=== PATIENT | female | born 1955 | race Caucasian/White ===

== ENCOUNTER 2021-10-18 06:47 | Inpatient (IN) ==
[2021-10-18] MEDS ORDERED: ONDANSETRON INJ 2 MG/ML 2 ML VIAL IV STA (07:25)
[2021-10-18] MEDS ORDERED: SODIUM CHLORIDE 0.9% 1000ML 1,000 ML IV SCH ×2 (07:26→10:25)
--- NOTE | 2021-10-18 07:31 | Emergency Department Note ---
History of Present Illness History of Present Illness Patient is a 66-year-old female with past medical history significant for anxiety and depression who presents emergency department accompanied by her daughter for evaluation after she suffered a syncopal episode at home while about 3 hours ago. Patient reports that she has been feeling well and was in her usual state of health yesterday. She was at a [facility] yesterday te[place], admits to drinking about 3 beers at that time. He is otherwise been eating and drinking normally. She states that her adult son woke her up around 0400 because he wanted her to check his eye for his contact lens. She got out of bed, was in the bathroom with him, used a flashlight to check his eye out, and as she turned to leave the bathroom she passed out. She does report that she felt a little bit dizzy prior to passing out. She fell into a full-length mirror in the hallway, and apparently struck her face on the ground when she fell. Son helped her up, at which point she passed out again down to the floor. He helped her up again, this time he caught her when she went down to the ground. He observed that her eyes were rolled back in her head, and she was unresponsive to him tapping her face and calling her name for several minutes. He then carried her back to bed. She remembers feeling dizzy in the bathroom, the next thing she remembers is being back in bed. She is feeling fatigued, chilled, continues to feel nauseous but has not vomited. She also has some discomfort in her nose/face where she struck it. Daughter came over about an hour later. She checked her blood pressure with a home cuff and noted to be 96/46. That is quite low for the patient. She denies any associated chest pain or palpitations. No shortness of breath. She has not been experiencing any abdominal pain, diarrhea, bloody or melanotic stools or urinary symptoms. No history of syncope or symptoms similar to this previously. Home Medications Medication Instructions Recorded Confirmed Type Estrogens, Conjugated (Premarin) 0.3 mg PO DAILY ##0 07/25/06 History Modafinil (Provigil) 200 mg PO DAILY ##0 12/25/09 History Allergies Allergy/AdvReac Type Severity Reaction Status Date / Time codeine Allergy Mild Unverified 01/13/10 16:24 Past Med/Surg History Medical History (Updated 10/18/21 @ 12:52 by OPAL Moss) Anxiety Anxiety and depression Depression Narcolepsy Osteoarthritis Surgical History History of oophorectomy Social History Smoking Status: Current every day smoker Tobacco Type: Cigarettes Hx Alcohol Use: Yes Alcohol Intake Frequency: Monthly or Less Hx Substance Use: No Preferred Language: Kyrgyz Current Living Situation: Family current occupational status: retired Feels Safe at Home: Yes Review of Systems A total of 10 systems reviewed and were otherwise negative Physical Exam Vital Signs Vital Signs - 24 hr 10/18/21 06:50 10/18/21 07:16 10/18/21 07:40 Temperature 36.5 C Temperature Source Temporal Artery Scan Pulse Rate - Lying Pulse Rate - Sitting Pulse Rate - Standing Pulse Rate 98 H Pulse Rate [Finger] 68 Respiratory Rate 18 16 Respiratory Effort / Characteristics Non-Labored Spontaneous Respiratory Depth Normal Respiratory Pattern Regular Blood Pressure - Lying Blood Pressure - Sitting Blood Pressure- Standing Blood Pressure 107/74 Blood Pressure [Right Arm] 101/70 Blood Pressure Mean 85 Blood Pressure Mean [Right Arm] 80 Blood Pressure Position Sitting Pulse Oximetry 94 96 Oxygen Delivery Method Room Air Room Air Sepsis Recent Fever Within 48 Hours No Sepsis New/Unexplained Change in Mental Status N/A Sepsis Action Taken by Nursing No Action Required 10/18/21 07:49 10/18/21 08:19 10/18/21 10:10 Temperature Temperature Source Pulse Rate - Lying 68 Pulse Rate - Sitting 74 Pulse Rate - Standing 76 Pulse Rate Pulse Rate [Finger] 74 80 Respiratory Rate 16 16 Respiratory Effort / Characteristics Respiratory Depth Respiratory Pattern Blood Pressure - Lying 103/69 Blood Pressure - Sitting 106/68 Blood Pressure- Standing 106/71 Blood Pressure Blood Pressure [Right Arm] 103/66 99/63 L Blood Pressure Mean Blood Pressure Mean [Right Arm] 78 75 Blood Pressure Position Pulse Oximetry 97 97 Oxygen Delivery Method Room Air Sepsis Recent Fever Within 48 Hours Sepsis New/Unexplained Change in Mental Status Sepsis Action Taken by Nursing 10/18/21 12:15 Temperature Temperature Source Pulse Rate - Lying Pulse Rate - Sitting Pulse Rate - Standing Pulse Rate Pulse Rate [Finger] 78 Respiratory Rate 16 Respiratory Effort / Characteristics Respiratory Depth Respiratory Pattern Blood Pressure - Lying Blood Pressure - Sitting Blood Pressure- Standing Blood Pressure Blood Pressure [Right Arm] 105/65 Blood Pressure Mean Blood Pressure Mean [Right Arm] 78 Blood Pressure Position Pulse Oximetry 89 L Oxygen Delivery Method Room Air Sepsis Recent Fever Within 48 Hours Sepsis New/Unexplained Change in Mental Status Sepsis Action Taken by Nursing CONSTITUTIONAL: [id number] HEENT: Normocephalic, atraumatic. Pupils equal, round, reactive to light and accommodation. EOMs intact without nystagmus. Sclera are anicteric. Optic discs and fundi are normal. Tympanic membranes intact, with normal landmarks. External canals are clear. No hemotympanum or Fang sign. Oral and nasopharynx are clear. No CSF rhinorrhea. Mucous membranes are moist. NECK: Supple, nontender, no lymphadenopathy. Full range of motion. HEART: Regular rate and rhythm, with normal S1 and S2, no murmur or gallop or rub is heard. LUNGS: Breath sounds equal and clear to auscultation without wheezes, rales, or rhonchi heard. SKIN: No lesions or rash, normal skin turgor. EXTREMITIES: No cyanosis, edema, joint tenderness or swelling. No deformity. NEUROLOGICAL: Alert and oriented x4. Cranial nerves 2 through 12, sensation and strength grossly intact. Gait is normal. Patient is able to toe, heel and tandem walk without difficulty. Negative Romberg, and pronator drift. Finger to nose, finger to finger and rapid alternating movements are intact. Immediate, recent and remote memories are intact. Concentration is normal. Course Course The patient was seen and assessed as above. Old records were reviewed. She presents the emergency department for evaluation after suffering a syncopal episode with injury early this morning. IV lock was initiated. Laboratory studies were collected. She was placed on the monitoring specialist and EKG was performed. She was hydrated with normal saline solution and treated with Zofran IV for nausea. Orthostatic vital signs were obtained and were normal. Laboratory studies including CBC with differential, CMP, TSH, urinalysis and 0 and 2-hour troponin were obtained. Head and maxillofacial CT scans were perfor med. Cardiac monitoring: An order was placed for continuous cardiac monitoring. The monitor shows a rate of [] with [] rhythm. Laboratory studies are reassuring. White count is normal at 10.0. H&H 13.8 and 41.2. Electrolytes and renal functions are without significant abnormality. Transaminases are normal, save for a minimally elevated alk phos at 126 of unclear significance. Initial troponin is normal. TSH is indicative of a euthyroid state. Urinalysis notes EKG note Head CT is negative for acute intracranial abnormality or fracture. Maxillofacial CT is negative for facial fractures. Administered Medications Discontinued Medications Sodium Chloride (Nss 1000ml) 1,000 mls @ 999 mls/hr IV .Q1H1M REMI Stop: 10/18/21 08:26 Last Infusion: 10/18/21 09:22 Dose: 0 mls/hr Documented By: Admin: 10/18/21 08:22 Dose: 999 mls/hr Documented By: ZULLY Sodium Chloride (Nss 1000ml) 1,000 mls @ 999 mls/hr IV .Q1H1M REMI Stop: 10/18/21 11:25 Last Infusion: 10/18/21 11:44 Dose: 0 mls/hr Documented By: Admin: 10/18/21 10:31 Dose: 999 mls/hr Documented By: ZULLY Ioversol (Optiray 300 500ml) 120 ml IV ONCE ONE Stop: 10/18/21 11:24 Last Admin: 10/18/21 11:24 Dose: 120 ml Documented By: HENRY Ondansetron HCl (Ondansetron Inj 2 Mg/Ml 2 Ml Vial) 4 mg IV NOW STA Stop: 10/18/21 07:26 Last Admin: 10/18/21 08:22 Dose: 4 mg Documented By: ZULLY Medical Decision Making Laboratory Data Result diagrams: 10/18/21 07:11 10/18/21 07:11 Lab Results 10/18/21 10/18/21 10/18/21 Range/Units 07:11 07:11 07:11 WBC 10.03 (4.8-10.8) K/ul RBC 4.54 (3.93-5.22) M/uL Hgb 13.8 (12.0-16.0) g/dl Hct 41.2 (34.1-44.9) % MCV 90.7 (80.0-100.0) fL MCH 30.4 (25.0-34.0) pg MCHC 33.5 (32.0-36.0) g/dL RDW Std Deviation 46.3 (36.4-46.3) fL RDW Coeff of Jose 13.9 (11.5-14.5) % Plt Count 301 (130-400) K/uL MPV 9.9 (9.4-12.3) fL Immature Gran % (Auto) 0.2 % Neut % (Auto) 60.1 % Lymph % (Auto) 25.2 % [place] % (Auto) 9.1 % Eos % (Auto) 4.4 % Baso % (Auto) 1.0 % Neut # (Auto) 6.03 (1.4-6.5) K/uL Lymph # (Auto) 2.53 (1.2-3.4) K/uL [place] # (Auto) 0.91 H (0.24-0.82) K/uL Eos # (Auto) 0.44 (0-0.50) K/uL Baso # (Auto) 0.10 (0-0.2) K/uL Immature Gran # (Auto) 0.02 (0.00-0.02) K/uL D-Dimer (0-500) ug/L FEU Sodium 140 (136-145) mmol/L Potassium 3.8 (3.5-5.1) mmol/L Chloride 104 (98-107) mmol/L Carbon Dioxide 31 (21-32) mmol/L Anion Gap 5 (3-11) BUN 12 (6-23) mg/dl Creatinine 0.59 L (0.6-1.2) mg/dl Est Cr Clr Drug Dosing 77.5 ml/min Est GFR ( Amer) 110.7 ml/min Est GFR (Non-Af Amer) 95.5 ml/min BUN/Creatinine Ratio 20.3 H (10-20) Glucose 92 (70-99(Fasting)) mg/dl Calcium 9.4 (8.5-10.1) mg/dl Total Bilirubin 0.4 (0.2-1.0) mg/dl AST 14 (13-39) U/L ALT 14 (7-52) U/L Alkaline Phosphatase 126 H (34-104) U/L Troponin I High Sens 3.0 (0-14) pg/ml Total Protein 6.8 (6.0-8.3) gm/dl Albumin 4.4 (3.4-5.0) gm/dl Globulin 2.4 L (2.5-4.0) gm/dl Albumin/Globulin Ratio 1.8 (0.9-2) TSH 3.326 (0.300-4.500) uIu/ml Urine Color Urine Appearance (Clear) Urine pH (4.5-7.5) Ur Specific [place] (1.000-1.030) Urine Protein (Negative) Urine Glucose (UA) (Negative) Urine Ketones (Negative) Urine Blood (Negative) Urine Nitrite (Negative) Urine Bilirubin (Negative) Urine Urobilinogen (Negative) Ur Leukocyte Esterase (Negative) 10/18/21 10/18/21 10/18/21 Range/Units 07:11 08:45 09:07 WBC (4.8-10.8) K/ul RBC (3.93-5.22) M/uL Hgb (12.0-16.0) g/dl Hct (34.1-44.9) % MCV (80.0-100.0) fL MCH (25.0-34.0) pg MCHC (32.0-36.0) g/dL RDW Std Deviation (36.4-46.3) fL RDW Coeff of Jose (11.5-14.5) % Plt Count (130-400) K/uL MPV (9.4-12.3) fL Immature Gran % (Auto) % Neut % (Auto) % Lymph % (Auto) % [place] % (Auto) % Eos % (Auto) % Baso % (Auto) % Neut # (Auto) (1.4-6.5) K/uL Lymph # (Auto) (1.2-3.4) K/uL [place] # (Auto) (0.24-0.82) K/uL Eos # (Auto) (0-0.50) K/uL Baso # (Auto) (0-0.2) K/uL Immature Gran # (Auto) (0.00-0.02) K/uL D-Dimer 2140 H* (0-500) ug/L FEU Sodium (136-145) mmol/L Potassium (3.5-5.1) mmol/L Chloride (98-107) mmol/L Carbon Dioxide (21-32) mmol/L Anion Gap (3-11) BUN (6-23) mg/dl Creatinine (0.6-1.2) mg/dl Est Cr Clr Drug Dosing ml/min Est GFR ( Amer) ml/min Est GFR (Non-Af Amer) ml/min BUN/Creatinine Ratio (10-20) Glucose (70-99(Fasting)) mg/dl Calcium (8.5-10.1) mg/dl Total Bilirubin (0.2-1.0) mg/dl AST (13-39) U/L ALT (7-52) U/L Alkaline Phosphatase (34-104) U/L Troponin I High Sens 2.9 (0-14) pg/ml Total Protein (6.0-8.3) gm/dl Albumin (3.4-5.0) gm/dl Globulin (2.5-4.0) gm/dl Albumin/Globulin Ratio (0.9-2) TSH (0.300-4.500) uIu/ml Urine Color Yellow Urine Appearance Clear (Clear) Urine pH 6.0 (4.5-7.5) Ur Specific [place] 1.009 (1.000-1.030) Urine Protein Negative (Negative) Urine Glucose (UA) Negative (Negative) Urine Ketones Negative (Negative) Urine Blood Negative (Negative) Urine Nitrite Negative (Negative) Urine Bilirubin Negative (Negative) Urine Urobilinogen Negative (Negative) Ur Leukocyte Esterase Negative (Negative) Imaging Data Radiologist's Impression: Face CT 10/18/21 07:[address] WITHOUT CONTRAST CLINICAL HISTORY: syncopal episode, fell and hit face COMPARISON STUDY: None. TECHNIQUE: A maxillofacial CT was performed without IV contrast. Coronal and sagittal reformats were viewed. Automated exposure control was utilized for the study. A dose lowering technique was utilized adhering to the principles of ALARA. FINDINGS: No acute facial fracture is identified. Globes are intact. There is no retrobulbar hematoma. Orbital floors are intact. Small mucous retention cyst within the right maxillary sinus is noted. There is mild ethmoid sinus mucosal thickening. Alignment of the temporomandibular joints is anatomic. No acute skull base fracture. No acute fracture within the visualized upper cervical spine. IMPRESSION: No acute facial fracture. ACT 112: Negative or not required by law. Electronically signed by: Quinton Avalos M.D. 10/18/2021 7:[address] 10/18/21 07:25 CT head/brain wo con CLINICAL HISTORY: 66 years-old Female with syncope. Acute head trauma status post syncope TECHNIQUE: Multiple axial CT images of the head were obtained without contrast. A dose lowering technique was utilized adhering to the principles of ALARA. COMPARISON: CT maxillofacial same day. FINDINGS: No acute intracranial hemorrhage, midline shift, intracranial mass, hydrocephalus, territorial ischemia or abnormal extra-axial collection. Mild involutional changes. Low-lying cerebellar tonsils. The calvarium is intact. The paranasal sinuses, mastoid air cells, and middle ear cavities are clear. IMPRESSION: No acute intracranial abnormality or calvarial fracture. ACT 112: Negative or not required by law. The above report was generated using voice recognition software. It may contain grammatical, syntax or spelling errors. Electronically signed by: Boone Esparza M.D. 10/18/2021 7:50 AM Chest CTA 10/18/21 11:05 CT angio chest PE protocol CT DOSE: 275.10 mGy.cm HISTORY: 66 years-old Female with HYPOTENSION, SYNCOPAL EPISODE, ELEVATED DDIMER. Acute syncope with hypotension. Elevated d-dimer. TECHNIQUE: Multiple CTA images of the chest were obtained after the intravenous administration of 120 ml Optiray. Coronal and sagittal MIPS were obtained from the axial data set and were submitted for review. All measurements were obtained according to NASCET criteria. A dose lowering technique was utilized adhering to the principles of ALARA. COMPARISON: Chest CT 01/14/2010 FINDINGS: CTA: The heart is normal in size. There is no pericardial effusion. No thoracic aortic aneurysm or dissection. Unremarkable pulmonary artery. No filling defects are identified to suggest thromboembolic disease. CT CHEST: Heterogeneous thyroid with subcentimeter left-sided nodule. No pathologically enlarged lymph nodes of the chest identified. Trace left pleural effusion. No pneumothorax or overt pulmonary edema. Bronchial wall thickening with bibasilar mucous plugging. Minimal dependent subsegmental bibasilar atelectasis. Reticular nodular opacities of the upper lobes with solid pulmonary nodules measuring up to 3 mm. No acute process of the imaged upper abdomen. Mild nonspecific bilateral perinephric stranding. There is suggestion of mild wall thickening of the stomach with trace area gastric inflammation. Unremarkable soft tissues. No acute fracture. IMPRESSION: 1. No pulmonary emboli. 2. Mild reticular nodular opacities of the upper lobes with solid pulmonary nodules measuring up to 3 mm, likely infectious or inflammatory. 3. There is suggestion of mild nonspecific wall thickening involving the gastric body. Findings should be correlated clinically to exclude a nonspecific gastritis. ACT 112: Negative or not required by law. The above report was generated using voice recognition software. It may contain grammatical, syntax or spelling errors. Electronically signed by: Boone Esparza M.D. 10/18/2021 12:06 PM Discharge Plan Visit Data Patient Disposition: Being Evaluated by Hospitalist Forms Stand Alone Forms: [facility] Prescriptions Prescriptions: No Action Estrogens, Conjugated (Premarin) 0.3 MG tablet 0.3 mg PO DAILY Qty: 0 Modafinil (Provigil) 200 MG tablet 200 mg PO DAILY Qty: 0 Referrals Referrals: PCP,NO [Physician] -
[2021-10-18 07:35] LABS: Eosinophils # (auto) 0.44 K/uL (0-0.50); Eosinophils % (auto) 4.4 %; Hematocrit (blood only) 41.2 % (34.1-44.9); Hemoglobin 13.8 g/dl (12.0-16.0); Immature Granulocytes # (auto) 0.02 K/uL (0.00-0.02); Immature Granulocytes % (auto) 0.2 %; Lymphocytes # (auto) 2.53 K/uL (1.2-3.4); Lymphocytes % (auto) 25.2 %; Mean Corpuscular Hemoglobin 30.4 pg (25.0-34.0); Mean Corpuscular Hgb Conc 33.5 g/dL (32.0-36.0); Mean Corpuscular Volume 90.7 fL (80.0-100.0); Mean Platelet Volume 9.9 fL (9.4-12.3); Monocytes # (auto) 0.91 K/uL (0.24-0.82); Monocytes % (auto) 9.1 %; Neutrophils # (auto) 6.03 K/uL (1.4-6.5); Neutrophils % (auto) 60.1 %; Platelet Count 301 K/uL (130-400); RDW Coefficient of Variation 13.9 % (11.5-14.5); RDW Standard Deviation 46.3 fL (36.4-46.3); Red Blood Count 4.54 M/uL (3.93-5.22); White Blood Count 10.03 K/ul (4.8-10.8)
--- NOTE | 2021-10-18 07:51 | CT Scan Report ---
CT head/brain wo con CLINICAL HISTORY: 66 years-old Female with syncope. Acute head trauma status post syncope TECHNIQUE: Multiple axial CT images of the head were obtained without contrast. A dose lowering tech nique was utilized adhering to the principles of ALARA. COMPARISON: CT maxillofacial same day. FINDINGS: No acute intracranial hemorrhage, midline shift, intracranial mass, hydrocephalus, territorial ischem ia or abnormal extra-axial collection. Mild involutional changes. Low-lying cerebellar tonsils. The calvarium is intact. The paranasal sinuses, mastoid air cells, and middle ear cavities are clear . IMPRESSION: No acute intracranial abnormality or calvarial fracture. ACT 112: Negative or not required by law. The above report was generated using voice recognition software. It may contain grammatical, syntax o r spelling errors. Electronically signed by: Boone Esparza M.D. 10/18/2021 7:50 AM
--- NOTE | 2021-10-18 07:55 | CT Scan Report ---
MAXILLOFACIAL CT WITHOUT CONTRAST CLINICAL HISTORY: syncopal episode, fell and hit face COMPARISON STUDY: None. TECHNIQUE: A maxillofacial CT was performed without IV contrast. Coronal and sagittal reformats were viewed. Automated exposure control was utilized for the study. A dose lowering technique was utiliz ed adhering to the principles of ALARA. FINDINGS: No acute facial fracture is identified. Globes are intact. There is no retrobulbar hematoma . Orbital floors are intact. Small mucous retention cyst within the right maxillary sinus is noted. T here is mild ethmoid sinus mucosal thickening. Alignment of the temporomandibular joints is anatomic. No acute skull base fracture. No acute fracture within the visualized upper cervical spine. IMPRESSION: No acute facial fracture. ACT 112: Negative or not required by law. Electronically signed by: Quinton Avalos M.D. 10/18/2021 7:54 AM
[2021-10-18 08:03] LABS: Albumin Globulin Ratio 1.8 (0.9-2); Albumin Level 4.4 gm/dl (3.4-5.0); BUN Creatinine Ratio 20.3 (10-20); Bilirubin,Total 0.4 mg/dl (0.2-1.0); Calcium 9.4 mg/dl (8.5-10.1); Creatinine Clr Calc Pharmacy 77.5 ml/min; Est GFR (African American) 110.7 ml/min; Est GFR (Non-African American) 95.5 ml/min; Globulin 2.4 gm/dl (2.5-4.0); Potassium 3.8 mmol/L (3.5-5.1); Total Protein 6.8 gm/dl (6.0-8.3)
[2021-10-18 09:01] LABS: Appearance Urine Clear (Clear); Bilirubin Urine Negative (Negative); Blood Urine Negative (Negative); Color Urine Yellow; Glucose Urine UA Negative (Negative); Ketones Urine Negative (Negative); Leukocyte Esterase Urine Negative (Negative); Nitrite Urine Negative (Negative); Protein Urine Negative (Negative); Specific Gravity Urine 1.009 (1.000-1.030); Urobilinogen Urine Negative (Negative)
[2021-10-18 10:50] LABS: D Dimer 2140 ug/L FEU (0-500)
[2021-10-18] MEDS ORDERED: OPTIRAY 300 500mL IV ONE (11:23)
--- NOTE | 2021-10-18 12:08 | CT Scan Report ---
CT angio chest PE protocol CT DOSE: 275.10 mGy.cm HISTORY: 66 years-old Female with HYPOTENSION, SYNCOPAL EPISODE, ELEVATED DDIMER. Acute syncope wit h hypotension. Elevated d-dimer. TECHNIQUE: Multiple CTA images of the chest were obtained after the intravenous administration of 120 ml Optiray. Coronal and sagittal MIPS were obtained from the axial data set and were submitted for review. All measurements were obtained according to NASCET criteria. A dose lowering technique was u tilized adhering to the principles of ALARA. COMPARISON: Chest CT 01/14/2010 FINDINGS: CTA: The heart is normal in size. There is no pericardial effusion. No thoracic aortic aneurysm or dissect ion. Unremarkable pulmonary artery. No filling defects are identified to suggest thromboembolic disea se. CT CHEST: Heterogeneous thyroid with subcentimeter left-sided nodule. No pathologically enlarged lymph nodes of the chest identified. Trace left pleural effusion. No pneumothorax or overt pulmonary edema. Bronchi al wall thickening with bibasilar mucous plugging. Minimal dependent subsegmental bibasilar atelectas is. Reticular nodular opacities of the upper lobes with solid pulmonary nodules measuring up to 3 mm. No acute process of the imaged upper abdomen. Mild nonspecific bilateral perinephric stranding. There is suggestion of mild wall thickening of the stomach with trace area gastric inflammation. Unremarka ble soft tissues. No acute fracture. IMPRESSION: 1. No pulmonary emboli. 2. Mild reticular nodular opacities of the upper lobes with solid pulmonary nodules measuring up to 3 mm, likely infectious or inflammatory. 3. There is suggestion of mild nonspecific wall thickening involving the gastric body. Findings shoul d be correlated clinically to exclude a nonspecific gastritis. ACT 112: Negative or not required by law. The above report was generated using voice recognition software. It may contain grammatical, syntax o r spelling errors. Electronically signed by: Boone Esparza M.D. 10/18/2021 12:06 PM
--- NOTE | 2021-10-18 12:46 | History & Physical Report ---
Date of Service October 18, 2021 Assessment & Plan (1) Syncope: (2) Hypotension: (3) Narcolepsy: (4) Anxiety and depression: Plan This is a 66 year old female who presented to the ED s/p two witnessed syncopal events and hypotension. PMH Narcolepsy, anxiety and depression. D-Dimer elevated; CTA negative. Head CT negative. Troponin negative; will trend. Likely vasovagal in nature. [facility] OPT cardiology appointment for zio patch/loop monitor. Syncope: Suspect vasovagal in nature Head CT negative D-Dimer 2140; CTA negative for PE Some nodules in the lungs 3mm possibly infectious in nature. Procal ordered; add on Mg+ Troponin negative x2; will trend Last A1C: 6.0 07/2021 Orthostatic BP's ordered ECHO ordered; no previous ECHO Rec [facility] Cardiology/ZIO patch. Zofran PRN for nausea Hypotension: SBP ranging 90-100; has received 2L IVF Maintenance fluids ordered Orthostatic BP's ordered Narcolepsy: Was taking Modafinil; stopped taking it one year ago Anxiety and Depression: Takes Sertraline; continue Osteoarthritis: Stable; takes Celebrex; continue. Disposition: PCP: Dr. Bismark Rosado Code Status: Full Code VTE Prophylaxis: Heparin SQ Goal to [place] home at [place] History of Present Illness Chief Complaint: syncope Primary Care Provider: Bismark Rosado DO This patient presented to the [facility] with her daughter after experiencing an episode of syncope, hitting her face on a standing wall mirror, and a period of one minute where her son reports that she was not responding to him. The patient does not recall the events. When her son tried to tap her on her face, her eyes rolled back into her head, was not responding for one minute. There was no vomiting, loss of bowel or bladder function, but she reports feeling dizzy and having diaphoresis. For a few seconds after her consciousness returned, she was confused. A head CT was negative, no acute facial fractures. D-dimer was elevated 2140; chest CTA negative for PE. Some nodules in the lungs 3mm possibly infectious in nature. No leukocytosis. Patient reports 1/2-3/4 ppd of cigarettes for 40+ years. Pt reports that she typically does not drink alcohol, but yesterday had 3 social drinks, no recreational drug use. Pt currently denies AMBRIZ, dizziness, CP, SOB, N/V/D, skin changes. Patient has an additional PMH that includes: narcolepsy, depression, anxiety, and OA. Patient has been off of Modafinil for almost one year. Patient is now retired and reports having a lot less stress now which has improved her anxiety, depression and narcolepsy. Patient will be admitted to the [facility] service for further evaluation and management. Allergies Allergy/AdvReac Type Severity Reaction Status Date / Time codeine Allergy Mild Unverified 01/13/10 16:24 Past Med/Surg History Medical History Anxiety Anxiety and depression Depression Narcolepsy Osteoarthritis Surgical History History of oophorectomy Social History Smoking Status: Current every day smoker Tobacco Type: Cigarettes Hx Alcohol Use: Yes Alcohol Intake Frequency: Monthly or Less Hx Substance Use: No Preferred Language: Luxembourgish Current Living Situation: Family current occupational status: retired Feels Safe at Home: Yes Review of Systems Review of Systems: Neuro: (-) Falls, trauma, slurred speech HEENT: (-) AMBRIZ, dizziness, dysphagia, visual or auditory changes CV: (-) CP, palpitations, swelling Resp: (-) SOB GI: (-) appetite changes, N/V/D, bowel changes : (-) urinary changes Skin: (-) rashes Psych: (+) anxiety, depression Physical Exam Physical Exam: Please refer to Dr. Freeman's addendum for physical examination documentation Results & Data Results & Data ([facility]) Vital Signs (Past 12 Hours) Vital Signs Temp Pulse Pulse Resp BP BP Pulse Ox 10/18/21 12:15 78 16 105/65 89 L 10/18/21 10:10 80 16 99/63 L 97 10/18/21 08:19 74 16 103/66 97 10/18/21 07:40 10/18/21 07:16 68 16 101/70 96 10/18/21 06:50 36.5 C 98 H 18 107/74 94 O2 Del Method 10/18/21 12:15 Room Air 10/18/21 10:10 Room Air 10/18/21 08:19 10/18/21 07:40 Room Air 10/18/21 07:16 10/18/21 06:50 Room Air Laboratory Results Short CBC 10/18/21 Range/Units 07:11 WBC 10.03 (4.8-10.8) K/ul Hgb 13.8 (12.0-16.0) g/dl Hct 41.2 (34.1-44.9) % Plt Count 301 (130-400) K/uL BMP 10/18/21 07:11 Sodium 140 Potassium 3.8 Chloride 104 Carbon Dioxide 31 BUN 12 Creatinine 0.59 L Glucose 92 Calcium 9.4 Liver Function 10/18/21 Range/Units 07:11 Total Bilirubin 0.4 (0.2-1.0) mg/dl AST 14 (13-39) U/L ALT 14 (7-52) U/L Alkaline Phosphatase 126 H (34-104) U/L Albumin 4.4 (3.4-5.0) gm/dl Urine 10/18/21 Range/Units 08:45 Urine Color Yellow Urine Appearance Clear (Clear) Urine pH 6.0 (4.5-7.5) Ur Specific [place] 1.009 (1.000-1.030) Urine Protein Negative (Negative) Urine Glucose (UA) Negative (Negative) Diagnostic Findings Face CT 10/18/21 07:[address] WITHOUT CONTRAST CLINICAL HISTORY: syncopal episode, fell and hit face COMPARISON STUDY: None. TECHNIQUE: A maxillofacial CT was performed without IV contrast. Coronal and sagittal reformats were viewed. Automated exposure control was utilized for the study. A dose lowering technique was utilized adhering to the principles of ALA RA. FINDINGS: No acute facial fracture is identified. Globes are intact. There is no retrobulbar hematoma. Orbital floors are intact. Small mucous retention cyst within the right maxillary sinus is noted. There is mild ethmoid sinus mucosal thickening. Alignment of the temporomandibular joints is anatomic. No acute skull base fracture. No acute fracture within the visualized upper cervical spi ne. IMPRESSION: No acute facial fracture. ACT 112: Negative or not required by law. Electronically signed by: Quinton Avalos M.D. 10/18/2021 7:[address] 10/18/21 07:25 CT head/brain wo con CLINICAL HISTORY: 66 years-old Female with syncope. Acute head trauma status post syncope TECHNIQUE: Multiple axial CT images of the head were obtained without contrast. A dose lowering technique was utilized adhering to the principles of ALARA. COMPARISON: CT maxillofacial same day. FINDINGS: No acute intracranial hemorrhage, midline shift, intracranial mass, hydrocephalus, territorial ischemia or abnormal extra-axial collection. Mild involutional changes. Low-lying cerebellar tonsils. The calvarium is intact. The paranasal sinuses, mastoid air cells, and middle ear cavities are clear. IMPRESSION: No acute intracranial abnormality or calvarial fracture. ACT 112: Negative or not required by law. The above report was generated using voice recognition software. It may contain grammatical, syntax or spelling errors. Electronically signed by: Boone Esparza M.D. 10/18/2021 7:50 AM Chest CTA 10/18/21 11:05 CT angio chest PE protocol CT DOSE: 275.10 mGy.cm HISTORY: 66 years-old Female with HYPOTENSION, SYNCOPAL EPISODE, ELEVATED DDIMER. Acute syncope with hypotension. Elevated d-dimer. TECHNIQUE: Multiple CTA images of the chest were obtained after the intravenous administration of 120 ml Optiray. Coronal and sagittal MIPS were obtained from the axial data set and were submitted for review. All measurements were obtained according to NASCET criteria. A dose lowering technique was utilized adhering to the principles of ALARA. COMPARISON: Chest CT 01/14/2010 FINDINGS: CTA: The heart is normal in size. There is no pericardial effusion. No thoracic aortic aneurysm or dissection. Unremarkable pulmonary artery. No filling defects are identified to suggest thromboembolic disease. CT CHEST: Heterogeneous thyroid with subcentimeter left-sided nodule. No pathologically enlarged lymph nodes of the chest identified. Trace left pleural effusion. No pneumothorax or overt pulmonary edema. Bronchial wall thickening with bibasilar mucous plugging. Minimal dependent subsegmental bibasilar atelectasis. Reticular nodular opacities of the upper lobes with solid pulmonary nodules measuring up to 3 mm. No acute process of the imaged upper abdomen. Mild nonspecific bilateral perinephric stranding. There is suggestion of mild wall thickening of the stomach with trace area gastric inflammation. Unremarkable soft tissues. No acute fracture. IMPRESSION: 1. No pulmonary emboli. 2. Mild reticular nodular opacities of the upper lobes with solid pulmonary nodules measuring up to 3 mm, likely infectious or inflammatory. 3. There is suggestion of mild nonspecific wall thickening involving the gastric body. Findings should be correlated clinically to exclude a nonspecific gastritis. ACT 112: Negative or not required by law. The above report was generated using voice recognition software. It may contain grammatical, syntax or spelling errors. Electronically signed by: Boone Esparza M.D. 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 Per patient, she went to picnic yesterday and had some extra level of exertion yesterday, also drank couple of beers (generally pt drinks very rarel y). She was woke up by her son today around 4 am to check on his eyes, which she did and then while turning around to return to her bed, she felt dizzy/sweaty and nauseous and fell on full length standing wall mirror hitting on her face. she was picked up by her son and immediately she had another syncopal events when her son prevented her from falling. She went to bed and again within an hour, when she got up to go to bathroom, she had another event of syncope when she was noted to have rolled eyes, was "out" for a minute "may be" and was confused for few seconds after she gained consciousness. No involuntary movements/loss of BnB control/tongue biting/prolong confusion/ictal phase noted. labs wnl, BP soft, CT H and Face wnl, d-dimer elevated --> CTA Chest w/ no PE. Trops x 2 negative. Pt w/ no chest pain or palpitations. IVF, trend trop, ECHO, ??? zio patch on DC, telemetry monitoring, IVF, ortho vitals (but patient received already 2L of IVF in the ED, ??reliability of test]. Upon Exam: GENERAL: Alert and oriented x3. NAD, on RA. HEENT: No pallor, no icterus. Pupils equal, round and reactive to light. Oral mucosa moist. NECK: No JVD, no neck masses. Superficial laceration of left nasal bridge/left supraorbital ridge noted, both small. HEART: S1 and S2 heard. Regular rate and rhythm. systolic murmur aortic area, no gallop. RESPIRATORY SYSTEM: Normal AP diameter. No accessory muscle use. No wheezing, no crackles. ABDOMEN: Soft, bowel sounds present, nontender, no distention. CENTRAL NERVOUS SYSTEM: No facial droop. Speech is clear. Obeys simple commands. Moves extremities. EXTREMITIES: No edema, no erythema seen. I have seen and examined the patient and have discussed the case with the provider above. I agree with the assessment and plan as stated.
--- NOTE | 2021-10-18 13:18 | Emergency Department Note ---
History of Present Illness General Chief complaint: Syncope Stated complaint: FAINTING, FALL TO THE FACE, NAUSEA Time Seen by Provider: 10/18/21 07:03 History of Present Illness Patient is a 66-year-old female with past medical history significant for narcolepsy, anxiety, depression and osteoarthritis who presents the emergency department accompanied by her daughter for evaluation after she suffered a syncopal episode at this morning. Incident happened around 3 hours prior to arrival, at 0400 this morning. Her adult son woke her from sleep to ask if she could look at his eye to see if he still had a contact lens in. They were in the bathroom for several minutes, looking at the eye. They had finished, and she was backing out of the bathroom to leave, when she passed out. She fell from a standing position, hit a floor length mirror in the hallway which broke, and went down to the ground. Her son witnessed the incident. He attended to her immediately. She was mumbling on the ground that she was fine, he helped stand her up at which point she immediately went back down to the ground. He helped her up a third time, this time when she started to go down, he caught her and lowered her to the ground. There was a period of a few minutes when she had her eyes rolled back in her head and would not respond to him calling her name or touching her face. He carried her back to bed. The patient states that she remembers being in the bathroom and feeling dizzy, then the next thing she remembers is being back in bed. She reports feeling dizzy, fatigued, nauseous and having chills. She has some soreness in her nose where she struck it, she does have an abrasion there. She denies any associated chest pain, palpitations or shortness of breath. She has been feeling well and was in her usual state of health prior to the incident this morning. She had a few beers at a family picnic earlier in the evening. Daughter came over about an hour after the incident and checked her blood pressure it was 96/46 with a home cuff. No vomiting. Normal bowel movements, and without melena or bright red blood per rectum. No urinary symptoms. She denies any headache. No neck pain. No other injuries related to the fall. Home Medications Medication Instructions Recorded Confirmed Type celecoxib 200 mg capsule 200 mg PO QAM 10/18/21 10/18/21 History cholecalciferol (vitamin D3) 25 0 mcg PO DAILY 10/18/21 10/18/21 History mcg (1,000 unit) capsule sertraline 100 mg tablet 100 mg PO QAM 10/18/21 10/18/21 History Allergies Allergy/AdvReac Type Severity Reaction Status Date / Time morphine AdvReac Nausea Unverified 10/18/21 14:26 Past Med/Surg History Medical History Anxiety Anxiety and depression Depression Narcolepsy Osteoarthritis Surgical History History of oophorectomy Social History Smoking Status: Current every day smoker Tobacco Type: Cigarettes Hx Alcohol Use: Yes Alcohol Intake Frequency: Monthly or Less Hx Substance Use: No Preferred Language: German Current Living Situation: Family current occupational status: retired Feels Safe at Home: Yes Review of Systems A total of 10 systems reviewed and were otherwise negative Physical Exam Vital Signs Vital Signs - 24 hr 10/18/21 06:50 10/18/21 07:16 10/18/21 07:40 Temperature 36.5 C Temperature Source Temporal Artery Scan Pulse Rate - Lying Pulse Rate - Sitting Pulse Rate - Standing Pulse Rate 98 H Pulse Rate [Finger] 68 Pulse Rate from SpO2 Sensor Respiratory Rate 18 16 Respiratory Effort / Characteristics Non-Labored Spontaneous Respiratory Depth Normal Respiratory Pattern Regular Blood Pressure - Lying Blood Pressure - Sitting Blood Pressure- Standing Blood Pressure 107/74 Blood Pressure [Right Arm] 101/70 Blood Pressure Mean 85 Blood Pressure Mean [Right Arm] 80 Blood Pressure Position Sitting Pulse Oximetry 94 96 Oxygen Delivery Method Room Air Room Air Sepsis Recent Fever Within 48 Hours No Sepsis New/Unexplained Change in Mental Status N/A Sepsis Action Taken by Nursing No Action Required 10/18/21 07:49 10/18/21 08:19 10/18/21 10:10 Temperature Temperature Source Pulse Rate - Lying 68 Pulse Rate - Sitting 74 Pulse Rate - Standing 76 Pulse Rate Pulse Rate [Finger] 74 80 Pulse Rate from SpO2 Sensor Respiratory Rate 16 16 Respiratory Effort / Characteristics Respiratory Depth Respiratory Pattern Blood Pressure - Lying 103/69 Blood Pressure - Sitting 106/68 Blood Pressure- Standing 106/71 Blood Pressure Blood Pressure [Right Arm] 103/66 99/63 L Blood Pressure Mean Blood Pressure Mean [Right Arm] 78 75 Blood Pressure Position Pulse Oximetry 97 97 Oxygen Delivery Method Room Air Sepsis Recent Fever Within 48 Hours Sepsis New/Unexplained Change in Mental Status Sepsis Action Taken by Nursing 10/18/21 12:15 10/18/21 09:00 10/18/21 09:00 Temperature Temperature Source Pulse Rate - Lying Pulse Rate - Sitting Pulse Rate - Standing Pulse Rate 81 Pulse Rate [Finger] 78 Pulse Rate from SpO2 Sensor 79 Respiratory Rate 16 19 Respiratory Effort / Characteristics Respiratory Depth Respiratory Pattern Blood Pressure - Lying Blood Pressure - Sitting Blood Pressure- Standing Blood Pressure 107/64 Blood Pressure [Right Arm] 105/65 Blood Pressure Mean 78 Blood Pressure Mean [Right Arm] 78 Blood Pressure Position Pulse Oximetry 89 L 91 Oxygen Delivery Method Room Air Sepsis Recent Fever Within 48 Hours Sepsis New/Unexplained Change in Mental Status Sepsis Action Taken by Nursing 10/18/21 09:10 10/18/21 09:20 10/18/21 09:30 Temperature Temperature Source Pulse Rate - Lying Pulse Rate - Sitting Pulse Rate - Standing Pulse Rate 80 78 Pulse Rate [Finger] Pulse Rate from SpO2 Sensor 79 78 Respiratory Rate 23 20 Respiratory Effort / Characteristics Respiratory Depth Respiratory Pattern Blood Pressure - Lying Blood Pressure - Sitting Blood Pressure- Standing Blood Pressure 99/64 L Blood Pressure [Right Arm] Blood Pressure Mean 75 Blood Pressure Mean [Right Arm] Blood Pressure Position Pulse Oximetry 93 92 Oxygen Delivery Method Sepsis Recent Fever Within 48 Hours Sepsis New/Unexplained Change in Mental Status Sepsis Action Taken by Nursing 10/18/21 09:30 10/18/21 09:40 10/18/21 09:50 Temperature Temperature Source Pulse Rate - Lying Pulse Rate - Sitting Pulse Rate - Standing Pulse Rate 76 78 76 Pulse Rate [Finger] Pulse Rate from SpO2 Sensor 77 78 76 Respiratory Rate 14 15 14 Respiratory Effort / Characteristics Respiratory Depth Respiratory Pattern Blood Pressure - Lying Blood Pressure - Sitting Blood Pressure- Standing Blood Pressure Blood Pressure [Right Arm] Blood Pressure Mean Blood Pressure Mean [Right Arm] Blood Pressure Position Pulse Oximetry 92 92 90 Oxygen Delivery Method Sepsis Recent Fever Within 48 Hours Sepsis New/Unexplained Change in Mental Status Sepsis Action Taken by Nursing 10/18/21 10:00 10/18/21 10:00 10/18/21 10:10 Temperature Temperature Source Pulse Rate - Lying Pulse Rate - Sitting Pulse Rate - Standing Pulse Rate 77 81 Pulse Rate [Finger] Pulse Rate from SpO2 Sensor 77 80 Respiratory Rate 13 12 Respiratory Effort / Characteristics Respiratory Depth Respiratory Pattern Blood Pressure - Lying Blood Pressure - Sitting Blood Pressure- Standing Blood Pressure 93/63 L Blood Pressure [Right Arm] Blood Pressure Mean 73 Blood Pressure Mean [Right Arm] Blood Pressure Position Pulse Oximetry 90 91 Oxygen Delivery Method Sepsis Recent Fever Within 48 Hours Sepsis New/Unexplained Change in Mental Status Sepsis Action Taken by Nursing 10/18/21 10:20 10/18/21 10:30 10/18/21 10:30 Temperature Temperature Source Pulse Rate - Lying Pulse Rate - Sitting Pulse Rate - Standing Pulse Rate 77 73 Pulse Rate [Finger] Pulse Rate from SpO2 Sensor 76 75 Respiratory Rate 16 21 Respiratory Effort / Characteristics Respiratory Depth Respiratory Pattern Blood Pressure - Lying Blood Pressure - Sitting Blood Pressure- Standing Blood Pressure 99/65 L Blood Pressure [Right Arm] Blood Pressure Mean 76 Blood Pressure Mean [Right Arm] Blood Pressure Position Pulse Oximetry 92 92 Oxygen Delivery Method Sepsis Recent Fever Within 48 Hours Sepsis New/Unexplained Change in Mental Status Sepsis Action Taken by Nursing 10/18/21 10:40 10/18/21 10:50 10/18/21 11:00 Temperature Temperature Source Pulse Rate - Lying Pulse Rate - Sitting Pulse Rate - Standing Pulse Rate 75 75 Pulse Rate [Finger] Pulse Rate from SpO2 Sensor 75 74 Respiratory Rate 19 21 Respiratory Effort / Characteristics Respiratory Depth Respiratory Pattern Blood Pressure - Lying Blood Pressure - Sitting Blood Pressure- Standing Blood Pressure 100/68 Blood Pressure [Right Arm] Blood Pressure Mean 78 Blood Pressure Mean [Right Arm] Blood Pressure Position Pulse Oximetry 92 93 Oxygen Delivery Method Sepsis Recent Fever Within 48 Hours Sepsis New/Unexplained Change in Mental Status Sepsis Action Taken by Nursing 10/18/21 11:00 10/18/21 11:10 10/18/21 11:31 Temperature Temperature Source Pulse Rate - Lying Pulse Rate - Sitting Pulse Rate - Standing Pulse Rate 72 74 74 Pulse Rate [Finger] Pulse Rate from SpO2 Sensor 72 74 73 Respiratory Rate 18 13 14 Respiratory Effort / Characteristics Respiratory Depth Respiratory Pattern Blood Pressure - Lying Blood Pressure - Sitting Blood Pressure- Standing Blood Pressure Blood Pressure [Right Arm] Blood Pressure Mean Blood Pressure Mean [Right Arm] Blood Pressure Position Pulse Oximetry 94 95 93 Oxygen Delivery Method Sepsis Recent Fever Within 48 Hours Sepsis New/Unexplained Change in Mental Status Sepsis Action Taken by Nursing 10/18/21 11:40 10/18/21 11:50 10/18/21 12:00 Temperature Temperature Source Pulse Rate - Lying Pulse Rate - Sitting Pulse Rate - Standing Pulse Rate 75 75 Pulse Rate [Finger] Pulse Rate from SpO2 Sensor 75 75 Respiratory Rate 16 18 Respiratory Effort / Characteristics Respiratory Depth Respiratory Pattern Blood Pressure - Lying Blood Pressure - Sitting Blood Pressure- Standing Blood Pressure 105/65 Blood Pressure [Right Arm] Blood Pressure Mean 78 Blood Pressure Mean [Right Arm] Blood Pressure Position Pulse Oximetry 92 92 Oxygen Delivery Method Sepsis Recent Fever Within 48 Hours Sepsis New/Unexplained Change in Mental Status Sepsis Action Taken by Nursing 10/18/21 12:00 10/18/21 12:10 10/18/21 12:20 Temperature Temperature Source Pulse Rate - Lying Pulse Rate - Sitting Pulse Rate - Standing Pulse Rate 73 77 73 Pulse Rate [Finger] Pulse Rate from SpO2 Sensor 73 76 73 Respiratory Rate 12 12 13 Respiratory Effort / Characteristics Respiratory Depth Respiratory Pattern Blood Pressure - Lying Blood Pressure - Sitting Blood Pressure- Standing Blood Pressure Blood Pressure [Right Arm] Blood Pressure Mean Blood Pressure Mean [Right Arm] Blood Pressure Position Pulse Oximetry 90 90 91 Oxygen Delivery Method Sepsis Recent Fever Within 48 Hours Sepsis New/Unexplained Change in Mental Status Sepsis Action Taken by Nursing 10/18/21 12:30 10/18/21 12:30 10/18/21 12:40 Temperature Temperature Source Pulse Rate - Lying Pulse Rate - Sitting Pulse Rate - Standing Pulse Rate 75 79 Pulse Rate [Finger] Pulse Rate from SpO2 Sensor 75 79 Respiratory Rate 12 13 Respiratory Effort / Characteristics Respiratory Depth Respiratory Pattern Blood Pressure - Lying Blood Pressure - Sitting Blood Pressure- Standing Blood Pressure 108/63 Blood Pressure [Right Arm] Blood Pressure Mean 78 Blood Pressure Mean [Right Arm] Blood Pressure Position Pulse Oximetry 91 93 Oxygen Delivery Method Sepsis Recent Fever Within 48 Hours Sepsis New/Unexplained Change in Mental Status Sepsis Action Taken by Nursing 10/18/21 12:50 10/18/21 13:00 10/18/21 13:00 Temperature Temperature Source Pulse Rate - Lying Pulse Rate - Sitting Pulse Rate - Standing Pulse Rate 71 78 Pulse Rate [Finger] Pulse Rate from SpO2 Sensor 71 78 Respiratory Rate 12 16 Respiratory Effort / Characteristics Respiratory Depth Respiratory Pattern Blood Pressure - Lying Blood Pressure - Sitting Blood Pressure- Standing Blood Pressure 99/64 L Blood Pressure [Right Arm] Blood Pressure Mean 75 Blood Pressure Mean [Right Arm] Blood Pressure Position Pulse Oximetry 92 92 Oxygen Delivery Method Sepsis Recent Fever Within 48 Hours Sepsis New/Unexplained Change in Mental Status Sepsis Action Taken by Nursing CONSTITUTIONAL: Patient is a well-appearing 66-year-old female who is awake and alert and in no acute distress. EYES: Pupils equal, round, reactive to light and accommodation. EOMs intact without nystagmus. Sclera are anicteric. ENT: Tympanic membranes intact, with normal landmarks. External canals are edu ar. No hemotympanum. No waters sign. Oral and nasopharynx are clear. Mucous membranes are moist, no lesions, tongue and gums appear normal. No dental injury noted. FACE: Superficial abrasion with a small V-shaped skin flap on the bridge of the nose which is slightly bruised, swollen and tender. No discomfort to palpation over the orbital rim, the mandible, the maxilla or the zygomatic's. The jaw opens and closes fully without malalignment. NECK: No bruits auscultated. Supple without lymphadenopathy. No thyromegaly. No meningeal signs. Full active range of motion without discomfort. CARDIOVASCULAR: Regular rate and rhythm. Peripheral pulses easy to palpable. RESPIRATORY: Breath sounds equal and clear to auscultation without wheezes, rales, or rhonchi heard. Full and equal chest expansion without accessory muscle use or retractions. GI: Bowel sounds are present. Abdomen is soft, nontender, nondistended. No organomegaly. No pulsatile masses. No guarding or rebound. MUSCULOSKELETAL: Full range of motion of extremities x 4 with good strength. No cyanosis, edema, joint tenderness or swelling. No deformity. INTEGUMENTARY: No lesions or rash, normal skin turgor. NEUROLOGICAL: Alert, oriented, and cooperative. Cranial nerves 2 through 12, sensation and strength grossly intact. She is independently ambulatory to the bathroom without difficulty or ataxia. Upper extremity and lower extremity strength and DTRs are equal and symmetrical bilaterally. Course Course The patient was seen and assessed as above. Old records were reviewed. She presents the emergency department for evaluation after suffering a syncopal episode with injury early this morning. IV lock was initiated. Laboratory studies were collected. She was placed on the campus monitor and EKG was performed. She was hydrated with a liter of normal saline solution and treated with Zofran IV for nausea. Orthostatic vital signs were obtained and were normal. Laboratory studies including CBC with differential, CMP, TSH, urinalysis and 0 and 2-hour troponin were obtained. Head and maxillofacial CT scans were performed. Cardiac monitoring: An order was placed for continuous cardiac monitoring. The monitor shows a normal sinus rhythm in the 70s to 80s. Laboratory studies are reassuring. White count is normal at 10.0. H&H 13.8 and 41.2. Electrolytes and renal functions are without significant abnormality. Transaminases are normal, save for a minimally elevated alk phos at 126 of unclear significance. 0 and 2-hour troponin are negative and not indicative of cardiac ischemia. TSH is indicative of a euthyroid state. Urinalysis is clear without signs of infection. EKG notes a normal sinus rhythm, 69 bpm. No ectopy, no interval prolongation, no acute ischemic changes. No significant change on review of prior EKG. Head CT is negative for acute intracranial abnormality or fracture. Maxillofacial CT is negative for facial fractures. Patient was reassessed. She was intermittently sleepy, which she attributed to her narcolepsy. She and her daughter were kept updated with the results of her test results. Her blood pressure was persistently low with systolics in the 90s to low 100s, despite IV hydration. Laboratory and diagnostic imaging studies were reviewed with Dr. Lisa, attending physician. She suggested performing a D-dimer which was elevated at over 2000. The patient was given a second liter of normal saline solution. I did clean her abrasions on her nose and her left elbow, debrided off a few small nonviable skin flaps, and otherwise they were dressed with bacitracin and light dressings. Given the elevated D-dimer, chest CT was performed to evaluate for PE. This was clear, no PE, benign-appearing nodules noted. Patient's hypotension persisted despite the second liter of fluid. Nursing staff also called, when the patient returned from CAT scan, she had a period where she dropped her O2 sat to 89%. Discussed additional testing and imaging with Dr. Lisa. At this point felt that due to the syncopal episode, persistent hypotension, the episode of O2 desaturation, she would benefit from further work-up/evaluation in the hospital. This was discussed with the patient and she was agreeable. A COVID test was obtained for admission purposes-this was negative. [facility] and [facility]. Administered Medications Discontinued Medications Sodium Chloride (Nss 1000ml) 1,000 mls @ 999 mls/hr IV .Q1H1M REMI Stop: 10/18/21 08:26 Last Infusion: 10/18/21 09:22 Dose: 0 mls/hr Documented By: Admin: 10/18/21 08:22 Dose: 999 mls/hr Documented By: ZULLY Sodium Chloride (Nss 1000ml) 1,000 mls @ 999 mls/hr IV .Q1H1M REMI Stop: 10/18/21 11:25 Last Infusion: 10/18/21 11:44 Dose: 0 mls/hr Documented By: Admin: 10/18/21 10:31 Dose: 999 mls/hr Documented By: ZULLY Ioversol (Optiray 300 500ml) 120 ml IV ONCE ONE Stop: 10/18/21 11:24 Last Admin: 10/18/21 11:24 Dose: 120 ml Documented By: HENRY Ondansetron HCl (Ondansetron Inj 2 Mg/Ml 2 Ml Vial) 4 mg IV NOW STA Stop: 10/18/21 07:26 Last Admin: 10/18/21 08: Dose: 4 mg Documented By: ZULLY Medical Decision Making Differential Diagnosis Differential includes seizure, syncope, mass or malignancy, CVA/TIA, acute coronary syndrome, arrhythmia, orthostasis, dehydration, electrolyte abnormalities, anemia, hypoglycemia, medication side effect among others.. Medical Records Attestation: I reviewed the patient's medical records. Home Medications Current Medication List: was personally reviewed by me Laboratory Data Attestation: I reviewed the patient's lab results. Result diagrams: 10/18/21 07:11 10/18/21 07:11 Lab Results 10/18/21 10/18/21 10/18/21 Range/Units 07:11 07:11 07:11 WBC 10.03 (4.8-10.8) K/ul RBC 4.54 (3.93-5.22) M/uL Hgb 13.8 (12.0-16.0) g/dl Hct 41.2 (34.1-44.9) % MCV 90.7 (80.0-100.0) fL MCH 30.4 (25.0-34.0) pg MCHC 33.5 (32.0-36.0) g/dL RDW Std Deviation 46.3 (36.4-46.3) fL RDW Coeff of Jose 13.9 (11.5-14.5) % Plt Count 301 (130-400) K/uL MPV 9.9 (9.4-12.3) fL Immature Gran % (Auto) 0.2 % Neut % (Auto) 60.1 % Lymph % (Auto) 25.2 % [place] % (Auto) 9.1 % Eos % (Auto) 4.4 % Baso % (Auto) 1.0 % Neut # (Auto) 6.03 (1.4-6.5) K/uL Lymph # (Auto) 2.53 (1.2-3.4) K/uL [place] # (Auto) 0.91 H (0.24-0.82) K/uL Eos # (Auto) 0.44 (0-0.50) K/uL Baso # (Auto) 0.10 (0-0.2) K/uL Immature Gran # (Auto) 0.02 (0.00-0.02) K/uL D-Dimer (0-500) ug/L FEU Sodium 140 (136-145) mmol/L Potassium 3.8 (3.5-5.1) mmol/L Chloride 104 (98-107) mmol/L Carbon Dioxide 31 (21-32) mmol/L Anion Gap 5 (3-11) BUN 12 (6-23) mg/dl Creatinine 0.59 L (0.6-1.2) mg/dl Est Cr Clr Drug Dosing 77.5 ml/min Est GFR ( Amer) 110.7 ml/min Est GFR (Non-Af Amer) 95.5 ml/min BUN/Creatinine Ratio 20.3 H (10-20) Glucose 92 (70-99(Fasting)) mg/dl Calcium 9.4 (8.5-10.1) mg/dl Total Bilirubin 0.4 (0.2-1.0) mg/dl AST 14 (13-39) U/L ALT 14 (7-52) U/L Alkaline Phosphatase 126 H (34-104) U/L Troponin I High Sens 3.0 (0-14) pg/ml Total Protein 6.8 (6.0-8.3) gm/dl Albumin 4.4 (3.4-5.0) gm/dl Globulin 2.4 L (2.5-4.0) gm/dl Albumin/Globulin Ratio 1.8 (0.9-2) TSH 3.326 (0.300-4.500) uIu/ml Urine Color Urine Appearance (Clear) Urine pH (4.5-7.5) Ur Specific [place] (1.000-1.030) Urine Protein (Negative) Urine Glucose (UA) (Negative) Urine Ketones (Negative) Urine Blood (Negative) Urine Nitrite (Negative) Urine Bilirubin (Negative) Urine Urobilinogen (Negative) Ur Leukocyte Esterase (Negative) SARS-CoV-2, RNA, NAAT (NEGATIVE) 10/18/21 10/18/21 10/18/21 Range/Units 07:11 08:45 09:07 WBC (4.8-10.8) K/ul RBC (3.93-5.22) M/uL Hgb (12.0-16.0) g/dl Hct (34.1-44.9) % MCV (80.0-100.0) fL MCH (25.0-34.0) pg MCHC (32.0-36.0) g/dL RDW Std Deviation (36.4-46.3) fL RDW Coeff of Jose (11.5-14.5) % Plt Count (130-400) K/uL MPV (9.4-12.3) fL Immature Gran % (Auto) % Neut % (Auto) % Lymph % (Auto) % [place] % (Auto) % Eos % (Auto) % Baso % (Auto) % Neut # (Auto) (1.4-6.5) K/uL Lymph # (Auto) (1.2-3.4) K/uL [place] # (Auto) (0.24-0.82) K/uL Eos # (Auto) (0-0.50) K/uL Baso # (Auto) (0-0.2) K/uL Immature Gran # (Auto) (0.00-0.02) K/uL D-Dimer 2140 H* (0-500) ug/L FEU Sodium (136-145) mmol/L Potassium (3.5-5.1) mmol/L Chloride (98-107) mmol/L Carbon Dioxide (21-32) mmol/L Anion Gap (3-11) BUN (6-23) mg/dl Creatinine (0.6-1.2) mg/dl Est Cr Clr Drug Dosing ml/min Est GFR ( Amer) ml/min Est GFR (Non-Af Amer) ml/min BUN/Creatinine Ratio (10-20) Glucose (70-99(Fasting)) mg/dl Calcium (8.5-10.1) mg/dl Total Bilirubin (0.2-1.0) mg/dl AST (13-39) U/L ALT (7-52) U/L Alkaline Phosphatase (34-104) U/L Troponin I High Sens 2.9 (0-14) pg/ml Total Protein (6.0-8.3) gm/dl Albumin (3.4-5.0) gm/dl Globulin (2.5-4.0) gm/dl Albumin/Globulin Ratio (0.9-2) TSH (0.300-4.500) uIu/ml Urine Color Yellow Urine Appearance Clear (Clear) Urine pH 6.0 (4.5-7.5) Ur Specific [place] 1.009 (1.000-1.030) Urine Protein Negative (Negative) Urine Glucose (UA) Negative (Negative) Urine Ketones Negative (Negative) Urine Blood Negative (Negative) Urine Nitrite Negative (Negative) Urine Bilirubin Negative (Negative) Urine Urobilinogen Negative (Negative) Ur Leukocyte Esterase Negative (Negative) SARS-CoV-2, RNA, NAAT (NEGATIVE) 10/18/21 Range/Units 12:35 WBC (4.8-10.8) K/ul RBC (3.93-5.22) M/uL Hgb (12.0-16.0) g/dl Hct (34.1-44.9) % MCV (80.0-100.0) fL MCH (25.0-34.0) pg MCHC (32.0-36.0) g/dL RDW Std Deviation (36.4-46.3) fL RDW Coeff of Jose (11.5-14.5) % Plt Count (130-400) K/uL MPV (9.4-12.3) fL Immature Gran % (Auto) % Neut % (Auto) % Lymph % (Auto) % [place] % (Auto) % Eos % (Auto) % Baso % (Auto) % Neut # (Auto) (1.4-6.5) K/uL Lymph # (Auto) (1.2-3.4) K/uL [place] # (Auto) (0.24-0.82) K/uL Eos # (Auto) (0-0.50) K/uL Baso # (Auto) (0-0.2) K/uL Immature Gran # (Auto) (0.00-0.02) K/uL D-Dimer (0-500) ug/L FEU Sodium (136-145) mmol/L Potassium (3.5-5.1) mmol/L Chloride (98-107) mmol/L Carbon Dioxide (21-32) mmol/L Anion Gap (3-11) BUN (6-23) mg/dl Creatinine (0.6-1.2) mg/dl Est Cr Clr Drug Dosing ml/min Est GFR ( Amer) ml/min Est GFR (Non-Af Amer) ml/min BUN/Creatinine Ratio (10-20) Glucose (70-99(Fasting)) mg/dl Calcium (8.5-10.1) mg/dl Total Bilirubin (0.2-1.0) mg/dl AST (13-39) U/L ALT (7-52) U/L Alkaline Phosphatase (34-104) U/L Troponin I High Sens (0-14) pg/ml Total Protein (6.0-8.3) gm/dl Albumin (3.4-5.0) gm/dl Globulin (2.5-4.0) gm/dl Albumin/Globulin Ratio (0.9-2) TSH (0.300-4.500) uIu/ml Urine Color Urine Appearance (Clear) Urine pH (4.5-7.5) Ur Specific [place] (1.000-1.030) Urine Protein (Negative) Urine Glucose (UA) (Negative) Urine Ketones (Negative) Urine Blood (Negative) Urine Nitrite (Negative) Urine Bilirubin (Negative) Urine Urobilinogen (Negative) Ur Leukocyte Esterase (Negative) SARS-CoV-2, RNA, NAAT NEGATIVE (NEGATIVE) Imaging Data Attestation: I personally reviewed and interpreted this imaging study as follows: Radiologist's Impression: Face CT 10/18/21 07:[address] WITHOUT CONTRAST CLINICAL HISTORY: syncopal episode, fell and hit face COMPARISON STUDY: None. TECHNIQUE: A maxillofacial CT was performed without IV contrast. Coronal and sagittal reformats were viewed. Automated exposure control was utilized for the study. A dose lowering technique was utilized adhering to the principles of ALARA. FINDINGS: No acute facial fracture is identified. Globes are intact. There is no retrobulbar hematoma. Orbital floors are intact. Small mucous retention cyst within the right maxillary sinus is noted. There is mild ethmoid sinus mucosal thickening. Alignment of the temporomandibular joints is anatomic. No acute skull base fracture. No acute fracture within the visualized upper cervical spine. IMPRESSION: No acute facial fracture. ACT 112: Negative or not required by law. Electronically signed by: Quinton Avalos M.D. 10/18/2021 7:[address] 10/18/21 07:25 CT head/brain wo con CLINICAL HISTORY: 66 years-old Female with syncope. Acute head trauma status post syncope TECHNIQUE: Multiple axial CT images of the head were obtained without contrast. A dose lowering technique was utilized adhering to the principles of ALARA. COMPARISON: CT maxillofacial same day. FINDINGS: No acute intracranial hemorrhage, midline shift, intracranial mass, hydrocephalus, territorial ischemia or abnormal extra-axial collection. Mild involutional changes. Low-lying cerebellar tonsils. The calvarium is intact. The paranasal sinuses, mastoid air cells, and middle ear cavities are clear. IMPRESSION: No acute intracranial abnormality or calvarial fracture. ACT 112: Negative or not required by law. The above report was generated using voice recognition software. It may contain grammatical, syntax or spelling errors. Electronically signed by: Boone Esparza M.D. 10/18/2021 7:50 AM Chest CTA 10/18/21 11:05 CT angio chest PE protocol CT DOSE: 275.10 mGy.cm HISTORY: 66 years-old Female with HYPOTENSION, SYNCOPAL EPISODE, ELEVATED DDIMER. Acute syncope with hypotension. Elevated d-dimer. TECHNIQUE: Multiple CTA images of the chest were obtained after the intravenous administration of 120 ml Optiray. Coronal and sagittal MIPS were obtained from the axial data set and were submitted for review. All measurements were obtained according to NASCET criteria. A dose lowering technique was utilized adhering to the principles of ALARA. COMPARISON: Chest CT 01/14/2010 FINDINGS: CTA: The heart is normal in size. There is no pericardial effusion. No thoracic aortic aneurysm or dissection. Unremarkable pulmonary artery. No filling defects are identified to suggest thromboembolic disease. CT CHEST: Heterogeneous thyroid with subcentimeter left-sided nodule. No pathologically enlarged lymph nodes of the chest identified. Trace left pleural effusion. No pneumothorax or overt pulmonary edema. Bronchial wall thickening with bibasilar mucous plugging. Minimal dependent subsegmental bibasilar atelectasis. Reticular nodular opacities of the upper lobes with solid pulmonary nodules measuring up to 3 mm. No acute process of the imaged upper abdomen. Mild nonspecific bilateral perinephric stranding. There is suggestion of mild wall thickening of the stom ach with trace area gastric inflammation. Unremarkable soft tissues. No acute fracture. IMPRESSION: 1. No pulmonary emboli. 2. Mild reticular nodular opacities of the upper lobes with solid pulmonary nodules measuring up to 3 mm, likely infectious or inflammatory. 3. There is suggestion of mild nonspecific wall thickening involving the gastric body. Findings should be correlated clinically to exclude a nonspecific gastritis. ACT 112: Negative or not required by law. The above report was generated using voice recognition software. It may contain grammatical, syntax or spelling errors. Electronically signed by: Boone Esparza M.D. 10/18/2021 12:06 PM ECG Data Attestation: I personally reviewed and interpreted this ECG as follows: Indication: + syncope Rate (beats per minute): 69 Rhythm: + normal sinus ECG [place]: + Normal ECG ST segments: + Normal ST segments Comparison ECG Date: from (01/2010) Change: no significant change Head Trauma GCS Score: 15 MDM Narrative See ED Course. Impression & Plan Syncope, Hypotension Discharge Plan Visit Data Chief Complaint: Syncope Stated Complaint: FAINTING, FALL TO THE FACE, NAUSEA ED Provider: Teresita Lisa ED Midlevel Provider: Pierce Ny Discharge Problem: Syncope, Hypotension Patient Disposition: Being Evaluated by Hospitalist Discharge Instructions Interventions: ED Discharge Assessment Last Done: 10/18/21 15:31
--- NOTE | 2021-10-18 15:15 | Electrocardiogram Report ---
Test Reason : Blood Pressure : / mmHG Vent. Rate : 069 BPM Atrial Rate : 069 BPM P-R Int : 178 ms QRS Dur : 086 ms QT Int : 408 ms P-R-T Axes : 074 -06 025 degrees QTc Int : 437 ms Normal sinus rhythm Normal ECG When compared with ECG of 13-JAN-2010 16:31, No significant change was found Confirmed by Lázaro Noe ([id number]) on 10/18/2021 3:15:31 PM Referred By: REFERRED SELF Confirmed By:Lázaro Noe
[2021-10-18] MEDS ORDERED: ENOXAPARIN INJ 40 MG/0.4 ML SYR SQ ONE (16:30)
[2021-10-18] MEDS: CeleBREX 200 MG CAP PO SCH (17:30)
[2021-10-18] MEDS: SERTRALINE HCL 100 MG TABLET PO SCH (17:30)
[2021-10-18] MEDS: SODIUM CHLORIDE 0.9% 1000ML 1,000 ML IV SCH (17:41)
[2021-10-18] MEDS: CALCIUM 600MG + VIT D 400 IU TAB PO SCH (20:45)
[2021-10-19 06:32] LABS: Hematocrit (blood only) 34.9 % (34.1-44.9); Hemoglobin 11.6 g/dl (12.0-16.0); Mean Corpuscular Hemoglobin 30.2 pg (25.0-34.0); Mean Corpuscular Hgb Conc 33.2 g/dL (32.0-36.0); Mean Corpuscular Volume 90.9 fL (80.0-100.0); Mean Platelet Volume 10.6 fL (9.4-12.3); Platelet Count 241 K/uL (130-400); Red Blood Count 3.84 M/uL (3.93-5.22); White Blood Count 7.33 K/ul (4.8-10.8)
[2021-10-19 07:09] LABS: BUN Creatinine Ratio 21.2 (10-20); C Reactive Protein 0.53 mg/dl (0-0.5); Calcium 8.5 mg/dl (8.5-10.1); Est GFR (African American) 115.4 ml/min; Est GFR (Non-African American) 99.6 ml/min; Potassium 3.8 mmol/L (3.5-5.1)
[2021-10-19] MEDS: SERTRALINE HCL 100 MG TABLET PO SCH (08:35)
[2021-10-19] MEDS: CALCIUM 600MG + VIT D 400 IU TAB PO SCH (08:35)
[2021-10-19] MEDS: CeleBREX 200 MG CAP PO SCH (08:35)
[2021-10-19] MEDS: SODIUM CHLORIDE 0.9% 1000ML 1,000 ML IV SCH (08:36)
[2021-10-19] MEDS: DICLOFENAC SOD 1% GEL 100 GM TUBE EXT SCH ×2 (14:36→18:15)
[2021-10-19] MEDS ORDERED: ENOXAPARIN INJ 40 MG/0.4 ML SYR SQ SCH (16:00)
--- NOTE | 2021-10-19 16:05 | XRay Report ---
XR hip LT 2V w pelvis CLINICAL HISTORY: left hip pain/fall prior to admission COMPARISON STUDY: None. FINDINGS: No acute fracture or dislocation within the pelvis or hips. The sacrum appears intact. Mild soft tissue swelling within the left lateral hip. Degenerative changes within the visualized lower l umbar spine and right sacroiliac joint. A 1.7 cm calcific density adjacent to the proximal shaft of t he left femur. This is likely chronic. IMPRESSION: No acute fracture or dislocation within the pelvis or hips. ACT 112: Negative or not required by law. Electronically signed by: Dread Alfonso M.D. 10/19/2021 4:04 PM
--- NOTE | 2021-10-19 16:13 | Electrocardiogram Report ---
Test Reason : Blood Pressure : / mmHG Vent. Rate : 057 BPM Atrial Rate : 057 BPM P-R Int : 178 ms QRS Dur : 082 ms QT Int : 414 ms P-R-T Axes : 078 015 044 degrees QTc Int : 402 ms Sinus bradycardia Low voltage QRS Borderline ECG When compared with ECG of 18-OCT-2021 07:03, Minimal criteria for Anterior infarct are no longer Present Confirmed by Rogers Joya ([id number]) on 10/19/2021 4:13:43 PM Referred By: REFERRED SELF Confirmed By:Rogers Joya
--- NOTE | 2021-10-19 16:19 | Discharge Summary ---
Date of Service October 19, 2021 Admission HPI Per Admitting Provider This patient presented to the [facility] with her daughter after experiencing an episode of syncope, hitting her face on a standing wall mirror, and a period of one minute where her son reports that she was not responding to him. The patient does not recall the events. When her son tried to tap her on her face, her eyes rolled back into her head, was not responding for one minute. There was no vomiting, loss of bowel or bladder function, but she reports feeling dizzy and having diaphoresis. For a few seconds after her consciousness returned, she was confused. A head CT was negative, no acute facial fractures. D-dimer was elevated 2140; chest CTA negative for PE. Some nodules in the lungs 3mm possibly infectious in nature. No leukocytosis. Patient reports 1/2-3/4 ppd of cigarettes for 40+ years. Pt reports that she typically does not drink alcohol, but yesterday had 3 social drinks, no recreational drug use. Pt currently denies AMBRIZ, dizziness, CP, SOB, N/V/D, skin changes. Patient has an additional PMH that includes: narcolepsy, depression, anxiety, and OA. Patient has been off of Modafinil for almost one year. Patient is now retired and reports having a lot less stress now which has improved her anxiety, depression and narcolepsy. Patient will be admitted to the [facility] Medicine service for further evaluation and management. Admission Exam Per Admitting Provider GENERAL: Alert and oriented x3. NAD, on RA. HEENT: No pallor, no icterus. Pupils equal, round and reactive to light. Oral mucosa moist. NECK: No JVD, no neck masses. Superficial laceration of left nasal bridge/left supraorbital ridge noted, both small. HEART: S1 and S2 heard. Regular rate and rhythm. systolic murmur aortic area, no gallop. RESPIRATORY SYSTEM: Normal AP diameter. No accessory muscle use. No wheezing, no crackles. ABDOMEN: Soft, bowel sounds present, nontender, no distention. CENTRAL NERVOUS SYSTEM: No facial droop. Speech is clear. Obeys simple commands. Moves extremities. EXTREMITIES: No edema, no erythema seen. Principal Diagnosis Syncope likely secondary to volume depletion versus vasovagal Hypotension at presentation Discharge Exam GENERAL: Alert and oriented x3. NAD, on RA. HEENT: No pallor, no icterus. Pupils equal, round and reactive to light. Oral mucosa moist. NECK: No JVD, no neck masses. Superficial laceration of left nasal bridge/left supraorbital ridge noted, both small. Not infected. HEART: S1 and S2 heard. Regular rate and rhythm. systolic murmur aortic area, no gallop. RESPIRATORY SYSTEM: Normal AP diameter. No accessory muscle use. No wheezing, no crackles. ABDOMEN: Soft, bowel sounds present, nontender, no distention. CENTRAL NERVOUS SYSTEM: No facial droop. Speech is clear. Obeys simple commands. Moves extremities. EXTREMITIES: No edema, no erythema seen. 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 Correction from H&P note, patient's son was present at bedside today and confirmed that she had all 3 syncopal episode [id number] not otherwise mentioned as in HPI. When she turned to return to her bathroom after helping her son, she fell on full-length standing wall mirror hitting on her face, her son picked her up, she again fell, her son picked her up quickly, she again started to fall at which point her son carried her to bed, patient got her consciousness back in maybe 30 seconds, patient was reported to be briefly confused with rolling of her eyes, patient stated she was dizzy/sweaty and nauseous prior to fall. She denied chest pain or palpitations prior to fall. No involuntary movements/loss of bowel and bladder control/tongue biting/prolonged confusion/ictal phase were noted. Patient also had more than usual level of exertion the day prior and had 4 beers [patient does not usually drink any alcoholic beverages]. Patient was hypotensive at presentation, received IV fluid resuscitation, Ortho vitals done were negative. Patient received IV fluid resuscitation, blood pressure got better, CTA chest was done and negative for PE, troponin trends were negative, echo done with EF of 65 to 70% and grade 1 diastolic dysfunction. Overnight telemetry with sinus in 60s to 70s. Labs and electrolytes fairly WNL. Patient reports left hip pain today, x-ray done, no acute fracture. Otherwise patient reports comfortable ambulation and feels better. Patient advised not to change position rapidly between lying/sitting/standing to avoid dizziness/fall. Patient also advised to maintain adequate fluid intake of 2 to 3 L/day of which 1 L could be electrolyte solution. Patient and her family were at bedside and advised to follow-up with PCP as an outpatient for outpatient Zio patch monitoring. The fall could be likely secondary to hypotension or vasovagal episode. For her other chronic medical conditions including narcolepsy/anxiety/depression/osteoarthritis: Patient to continue her prior medication. Full code Patient being discharged home with following instructions at the point of discharge: Follow-up with your primary care physician within a week time. Get your blood work CBC/CMP/magnesium level in a week time. You will have to call your primary care office to set this up. You will need outpatient Zio patch monitoring. You will have to call your primary care office to set this up as discussed at the bedside. Maintain adequate fluid intake of 2 to 3 L/day. Of which, 0.5 to 1 L could be [id number] electrolyte solution. Avoid rapid change in position between lying/sitting/standing to avoid dizziness and fall. You can apply [id number] Voltaren gel over your left hip for pain management that you sustained after fall, x-ray done while in hospital does not reveal any acute fracture. Continue your other medications as prescribed. Total Time Total Time Spent Total Time Spent (In Minutes): 40 Discharge Plan Discharge Items Patient Disposition: Home - Self-Care Reason For Visit: SYNCOPE Discharge Diagnosis: Syncope likely secondary to volume depletion versus vasovagal Hypotension at presentation Activity: As commented below Activity Comment: take time while changing positions between lying/sitting /standing. Non-emergency contact: Primary Care Provider Call non-emergency contact if: you have any medication questions, your symptoms worsen and your temperature is above 101 Follow-up/Referrals: Rosado,Bismark S., DO [Primary Care Provider] - (Date & Time 10/26/2021 11:00 AM Provider [facility] ) Diet: Regular Addtl Attending Provider Instructions: Follow-up with your primary care physician within a week time. Get your blood work CBC/CMP/magnesium level in a week time. You will have to call your primary care office to set this up. You will need outpatient Zio patch monitoring. You will have to call your primary care office to set this up as discussed at the bedside. Maintain adequate fluid intake of 2 to 3 L/day. Of which, 0.5 to 1 L could be [id number] electrolyte solution. Avoid rapid change in position between lying/sitting/standing to avoid dizziness and fall. You can apply [id number] Voltaren gel over your left hip for pain management that you sustained after fall, x-ray done while in hospital does not reveal any acute fracture. Continue your other medications as prescribed. Pending Studies at Discharge: No Stand-Alone Forms: My [facility], Smoking Cessation Medications and DC Order Prescriptions: New diclofenac sodium [Voltaren Arthritis Pain] 1 % Gel 4 g EXT Q6H Qty: 100 0RF Continued celecoxib 200 mg capsule 200 mg PO QAM sertraline 100 mg tablet 100 mg PO QAM cholecalciferol (vitamin D3) 25 mcg (1,000 unit) Capsule 0 mcg PO DAILY Discharge Orders: Discharge Order (Routine); Ordered 10/19/21 Ordered By: Isabel Freeman Admission Data Admit Date/Time: 10/18/21 13:03 Attending Provider: Isabel Freeman Admit Provider: Isabel Freeman Primary Care Provider: Bismark Rosado Other Providers: Isabel Freeman
[2021-10-19] MEDS ORDERED: CHOLECALCIFEROL 1,000 UNITS 25 MCG TAB PO SCH (21:00)
== END 2021-10-19 18:15 | disposition home or self-care (01) | DRG 312 ==
LOC: ED 06:47 → SUATTDRO 13:03 → 2N 13:03

== ENCOUNTER 2021-11-26 20:13 | Inpatient (IN) ==
[2021-11-26 22:45] LABS: Basophils # (auto) 0.09 K/uL (0-0.2); Eosinophils # (auto) 0.26 K/uL (0-0.50); Hematocrit (blood only) 37.8 % (34.1-44.9); Hemoglobin 13.1 g/dl (12.0-16.0); Immature Granulocytes # (auto) 0.02 K/uL (0.00-0.02); Immature Granulocytes % (auto) 0.2 %; Lymphocytes # (auto) 3.24 K/uL (1.2-3.4); Lymphocytes % (auto) 37.8 %; Mean Corpuscular Hemoglobin 31.6 pg (25.0-34.0); Mean Corpuscular Hgb Conc 34.7 g/dL (32.0-36.0); Mean Corpuscular Volume 91.1 fL (80.0-100.0); Mean Platelet Volume 9.8 fL (9.4-12.3); Monocytes # (auto) 0.91 K/uL (0.24-0.82); Monocytes % (auto) 10.6 %; Neutrophils # (auto) 4.06 K/uL (1.4-6.5); Neutrophils % (auto) 47.4 %; Platelet Count 283 K/uL (130-400); Red Blood Count 4.15 M/uL (3.93-5.22); White Blood Count 8.58 K/ul (4.8-10.8)
[2021-11-26 23:03] LABS: Albumin Globulin Ratio 1.6 (0.9-2); Albumin Level 4.1 gm/dl (3.4-5.0); BUN Creatinine Ratio 28.1 (10-20); Bilirubin,Total 0.4 mg/dl (0.2-1.0); Calcium 9.3 mg/dl (8.5-10.1); Creatinine Clr Calc Pharmacy 79.8 ml/min; Est GFR (Non-African American) 96.6 ml/min; Globulin 2.5 gm/dl (2.5-4.0); Potassium 3.6 mmol/L (3.5-5.1); Total Protein 6.6 gm/dl (6.0-8.3)
--- NOTE | 2021-11-27 00:08 | Emergency Department Note ---
Impression & Plan [facility] NAME: OPHELIA HERRON AGE: 66 SEX: F ARRIVES VIA: Walk-In INFORMANT: Patient ED PROVIDER(S): Shanice Chan DO CHIEF COMPLAINT: Left hip pain PLAN: Disposition: Admit to the [facility] Condition: Good MEDICAL DECISION MAKING: This is a 66-year-old female patient who suffered a syncopal episode on October 18 with resulting left hip pain. After a lengthy amount of time, the patient was finally diagnosed with a left hip fracture by MRI that was performed on Tuesday at [facility]. She was evaluated earlier today by Dr. Moulton at [facility] and he directed her here for admission to the hospital for surgical repair of the fracture. For the patient's original episode of syncope, she had an extensive work-up including a 14-day Holter monitor test which was negative according to the patient Triage Nursing notes reviewed and agree with them. Vital Signs: reviewed and unremarkable Diagnostics interpreted by me: ECG: Normal sinus rhythm at a rate of [address] segment elevation or signs of ischemia Cardiac Monitoring: Normal sinus rhythm at 72 Laboratory studies: See below HPI: 66/F arrives for evaluation of left hip pain. Patient suffered a syncopal episode on October 18 and was seen in the emergency department and then s ubsequently admitted to the hospital. She had a work-up for the syncope and an x-ray of the left hip which was read as negative. In the following couple of weeks, the patient was evaluated multiple times for continued left hip pain. She finally underwent MRI of the left hip this past Tuesday at [facility] was diagnosed with a fracture. She was evaluated by Dr. Messer from [facility] earlier today who is made arrangements to perform surgery on the left hip here at [facility] on Tuesday. ROS: See above HPI for pertinent positives & negatives. A total of 10 systems reviewed and were otherwise negative. PAST MEDICAL HISTORY:See Below PAST SURGICAL HISTORY:See Below FAMILY HISTORY:See Below SOCIAL HISTORY:See Below HOME MEDICATIONS:See list ALLERGIES:See list VITALS:See Below PHYSICAL EXAMINATION: HEENT: Head - normocephalic and atraumatic Pupils are equal, round, and reactive to light. Extraocular eye muscles are intact, and sclera are anicteric. Nose - moist nasal mucosa without discharge. Mouth - moist buccal mucosa. Oropharynx is nonerythematous and there is no tonsillar exudate or edema noted. Neck: Supple; no cervical lymphadenopathy or thyromegaly Heart: Regular rate and rhythm. There is a normal S1 and S2 with no murmurs, clicks, or gallops appreciated. Lungs: Clear to auscultation bilaterally with no wheezes, rales, or rhonchi. Abdomen: Soft, completely nontender, nondistended, with good bowel sounds. There are no palpable pulsatile masses or hepatosplenomegaly. There is no guarding, rigidity, or rebound noted. Extremities: No evidence of cyanosis, clubbing, or edema. There are easily pa lpable peripheral pulses. Skin: warm and dry with good turgor and no rashes. ED COURSE: Times/Reassessments: 232: The patient was evaluated in room C4. A complete history and physical was performed. An IV lock was initiated and labs are drawn as above. A twelve-lead EKG was obtained as described above. An order was placed for continuous cardiac monitoring. The patient was in a normal sinus rhythm at a rate of 72. I discussed the case with the [facility] Hospitalist and they will evaluate for further management Shanice Chan, Past Med/Surg History Medical History Anxiety Anxiety and depression Depression Narcolepsy Osteoarthritis Surgical History History of oophorectomy One ovary removed due to cyst Social History Smoking Status: Current every day smoker Tobacco Type: Cigarettes Cigarettes Per Day: half pack; Second Hand Exposure: No; Do You Dip or Chew Tobacco: No; Hx Alcohol Use: Yes Alcohol type: beer Alcohol Intake Frequency: Monthly or Less Hx Substance Use: No Preferred Language: Kiswahili Communication Ability: Effective Shop Technician Required: No Beliefs That Will Affect Care: None Current Living Situation: Other Current Living Situation Comment: Son current occupational status: retired Feels Safe at Home: Yes Safety Concerns: Feels Safe At This Time Assistive Devices: None Allergies Allergies Allergy/AdvReac Type Severity Reaction Status Date / Time morphine AdvReac Nausea Unverified 11/26/21 23:15 Home Meds Home Medications Medication Instructions Recorded Confirmed celecoxib 200 mg capsule 200 mg PO QAM 10/18/21 11/26/21 cholecalciferol (vitamin D3) 25 0 mcg PO DAILY 10/18/21 11/26/21 mcg (1,000 unit) capsule sertraline 100 mg tablet 100 mg PO QAM 10/18/21 11/26/21 Previous Rx's Medication Instructions Recorded diclofenac sodium 1 % topical gel 4 g EXT Q6H #100 grams 10/19/21 (Voltaren Arthritis Pain) Results & Data (ED) Vital Signs Vital Signs - 24 hr 11/26/21 20:17 11/26/21 22:18 11/27/21 00:00 Temperature 36.2 C L Temperature Source Temporal Artery Scan Pulse Rate 91 H Pulse Rate [Apical] 75 72 Pulse Rhythm [Apical] Regular Pulse Strength [Apical] Normal Respiratory Rate 18 14 18 Respiratory Effort / Characteristics Non-Labored Spontaneous Non-Labored Respiratory Depth Normal Normal Normal Respiratory Pattern Regular Regular Blood Pressure 114/78 Blood Pressure [Left Arm] 129/71 122/88 Blood Pressure Mean 90 Blood Pressure Mean [Left Arm] 90 99 Blood Pressure Position [Left Arm] Semi-fowlers Pulse Oximetry 98 93 92 Oxygen Delivery Method Room Air Room Air Room Air Sepsis New/Unexplained Change in Mental Status N/A Sepsis Action Taken by Nursing No Action Required Laboratory Data Result diagrams: 11/26/21 22:26 11/26/21 22:26 Lab Results 11/26/21 11/26/21 11/26/21 Range/Units 22:26 22:26 22:26 WBC 8.58 (4.8-10.8) K/ul RBC 4.15 (3.93-5.22) M/uL Hgb 13.1 (12.0-16.0) g/dl Hct 37.8 (34.1-44.9) % MCV 91.1 (80.0-100.0) fL MCH 31.6 (25.0-34.0) pg MCHC 34.7 (32.0-36.0) g/dL RDW Std Deviation 47.0 H (36.4-46.3) fL RDW Coeff of Jose 14.0 (11.5-14.5) % Plt Count 283 (130-400) K/uL MPV 9.8 (9.4-12.3) fL Immature Gran % (Auto) 0.2 % Neut % (Auto) 47.4 % Lymph % (Auto) 37.8 % Dodge % (Auto) 10.6 % Eos % (Auto) 3.0 % Baso % (Auto) 1.0 % Neut # (Auto) 4.06 (1.4-6.5) K/uL Lymph # (Auto) 3.24 (1.2-3.4) K/uL Dodge # (Auto) 0.91 H (0.24-0.82) K/uL Eos # (Auto) 0.26 (0-0.50) K/uL Baso # (Auto) 0.09 (0-0.2) K/uL Immature Gran # (Auto) 0.02 (0.00-0.02) K/uL APTT 29.9 (21.0-31.0) Seconds PTT Ratio 1.1 D-Dimer 500 (0-500) ug/L FEU Sodium 139 (136-145) mmol/L Potassium 3.6 (3.5-5.1) mmol/L Chloride 104 (98-107) mmol/L Carbon Dioxide 29 (21-32) mmol/L Anion Gap 6 (3-11) BUN 16 (6-23) mg/dl Creatinine 0.57 L (0.6-1.2) mg/dl Est Cr Clr Drug Dosing 79.8 ml/min Est GFR ( Amer) 112.0 ml/min Est GFR (Non-Af Amer) 96.6 ml/min BUN/Creatinine Ratio 28.1 H (10-20) Glucose 73 (70-99(Fasting)) mg/dl Calcium 9.3 (8.5-10.1) mg/dl Total Bilirubin 0.4 (0.2-1.0) mg/dl AST 14 (13-39) U/L ALT 10 (7-52) U/L Alkaline Phosphatase 115 H (34-104) U/L Troponin I High Sens (0-14) pg/ml Total Protein 6.6 (6.0-8.3) gm/dl Albumin 4.1 (3.4-5.0) gm/dl Globulin 2.5 (2.5-4.0) gm/dl Albumin/Globulin Ratio 1.6 (0.9-2) SARS-CoV-2, RNA, NAAT (NEGATIVE) 11/26/21 11/27/21 Range/Units 22:26 00:00 WBC (4.8-10.8) K/ul RBC (3.93-5.22) M/uL Hgb (12.0-16.0) g/dl Hct (34.1-44.9) % MCV (80.0-100.0) fL MCH (25.0-34.0) pg MCHC (32.0-36.0) g/dL RDW Std Deviation (36.4-46.3) fL RDW Coeff of Jose (11.5-14.5) % Plt Count (130-400) K/uL MPV (9.4-12.3) fL Immature Gran % (Auto) % Neut % (Auto) % Lymph % (Auto) % Dodge % (Auto) % Eos % (Auto) % Baso % (Auto) % Neut # (Auto) (1.4-6.5) K/uL Lymph # (Auto) (1.2-3.4) K/uL Dodge # (Auto) (0.24-0.82) K/uL Eos # (Auto) (0-0.50) K/uL Baso # (Auto) (0-0.2) K/uL Immature Gran # (Auto) (0.00-0.02) K/uL APTT (21.0-31.0) Seconds PTT Ratio D-Dimer (0-500) ug/L FEU Sodium (136-145) mmol/L Potassium (3.5-5.1) mmol/L Chloride (98-107) mmol/L Carbon Dioxide (21-32) mmol/L Anion Gap (3-11) BUN (6-23) mg/dl Creatinine (0.6-1.2) mg/dl Est Cr Clr Drug Dosing ml/min Est GFR ( Amer) ml/min Est GFR (Non-Af Amer) ml/min BUN/Creatinine Ratio (10-20) Glucose (70-99(Fasting)) mg/dl Calcium (8.5-10.1) mg/dl Total Bilirubin (0.2-1.0) mg/dl AST (13-39) U/L ALT (7-52) U/L Alkaline Phosphatase (34-104) U/L Troponin I High Sens 2.7 (0-14) pg/ml Total Protein (6.0-8.3) gm/dl Albumin (3.4-5.0) gm/dl Globulin (2.5-4.0) gm/dl Albumin/Globulin Ratio (0.9-2) SARS-CoV-2, RNA, NAAT NEGATIVE (NEGATIVE) Administered Medications Diclofenac Sodium (Diclofenac Sod 1% Gel 100 Gm Tube) 4 gm EXT Q6H [facility]; Protocol Stop: 12/27/21 05:59 Last Admin: 11/27/21 17:36 Dose: Not Given Documented By: [id number] Admin: 11/27/21 11:16 Dose: Not Given Documented By: [id number] Admin: 11/27/21 05:16 Dose: Not Given Documented By: TIAGO Dextrose/Lactated Ringer's (D5w And Lactated Ringers) 1,000 mls @ 40 mls/hr IV .Q24H ONE Stop: 11/28/21 02:27 Last Admin: 11/27/21 05:15 Dose: 40 mls/hr Documented By: TIAGO Sertraline HCl (Sertraline Hcl 100 Mg Tablet) [facility] Stop: 12/27/21 08:59 Last Admin: 11/27/21 09:10 Dose: 100 mg Documented By: [id number] Imaging Data Radiologist's Impression: Chest X-Ray 11/27/21 00:59 XR chest 1V portable HISTORY: 66 years-old Female cp preoperative exam. No acute chest complaints COMPARISON: CTA chest 10/18/2021 TECHNIQUE: AP view of the chest FINDINGS: Cardiomediastinal and hilar silhouettes are within normal limits. No pneumothorax, pleural effusion, airspace consolidation or overt pulmonary edema. Subtle reticular nodular opacities are again noted. Bones appear grossly intact. IMPRESSION: 1. No acute process. 2. Subtle reticulonodular opacities are better visualized on the comparison CTA chest, likely infectious or inflammatory. ACT 112: Negative or not required by law. The above report was generated using voice recognition software. It may contain grammatical, syntax or spelling errors. Electronically signed by: Boone Esparza M.D. 11/27/2021 10:29 AM Discharge Plan Visit Data Chief Complaint: Hip Pain Stated Complaint: HIP PAIN ED Provider: Shanice Chan Discharge Problem: Closed left hip fracture Patient Disposition: Admitted As Inpatient Discharge Instructions Interventions: ED Discharge Assessment Last Done: 11/27/21 04:32
[2021-11-27] MEDS ORDERED: D5W AND LACTATED RINGERS 1,000 ML IV ONE (02:28)
--- NOTE | 2021-11-27 02:31 | History & Physical Report ---
Date of Service November 27, 2021 Assessment & Plan (1) Closed left hip fracture: Plan: Following injury from last month. Musculoskeletal chest pain hx COPD, lung status stable narcolepsy, currently not on medications mild aortic stenosis on recent TTE prediabetes, hemoglobin A1c of 6 from August 2021 anxiety/mood disorder, stable ongoing tobacco abuse [facility] Orthopedics consult Re: Left hip fracture (Surgery recommended following patient evaluation by Dr. Moulton outpatient.) N.p.o. until patient seen by Orthopedics Acceptable risk for cardiac complications resulting from prospective procedure Revised Cardiac Risk Index (RCRI): 1. High-risk type of surgery (examples include vascular and any open intraperitoneal or intrathoracic procedures). No 2. History of ischemic heart disease (history of myocardial infarction or positive exercise test, current compliant of chest pain considered to be secondary to myocardial ischemia, use of nitrate therapy, or ECG with pathological Q waves; do not count prior coronary revascularization procedure unless one of the other criteria for ischemic heart disease is present). No 3. History of heart failure. No 4. History of cerebrovascular disease. No 5. Diabetes mellitus requiring treatment with insulin. No 6. Preoperative serum creatinine >2.0. No Pt has revised cardiac index score of 0 points. (Class I Risk.) 3.9 % 30-day risk of , CO, or cardiac arrest. Nicotine patch as needed DVT prophylaxis. SCDs Re: Possible surgery Recommend pharmacologic anticoagulation once bleeding risk is deemed to be minimal and negligible pending Orthopedics evaluation. Full code Text document was generated using [employer] voice recognition software. It may contain grammatical or spelling errors. Kindly contact undersigned for clarification of any documentation item in question. History of Present Illness Chief Complaint: L Hip fracture Primary Care Provider: Bismark Rosado DO History obtained from patient and records. Medical history significant for COPD, narcolepsy, mild aortic stenosis, narcole psy, prediabetes, anxiety/mood disorder, ongoing tobacco abuse. Last confinement last month for syncope attributed to volume depletion versus vasovagal response. Patient hypotensive upon arrival at the ER. TTE showed EF of 65 to 70%, grade 1 diastolic dysfunction, mild aortic stenosis. Patient with persistent left hip pain complaints following fall. Plain x-rays negative for fracture. No improvement in left hip pain despite outpatient intra-articular steroid injection by [facility] Sports Medicine. Patient unable to do physical therapy. MRI of the left hip recommended by Orthopedics last week to evaluate symptoms. Outpatient MRI resulted a few days ago. 1. Nondisplaced and mildly impacted subcapital fracture of the left femoral neck. 2. Degenerative tearing of the left acetabular labrum. 3. Ymtrnahu-yd-niwkdf intervertebral disc degeneration at L5-S1. Patient evaluated by [facility] Orthopedics yesterday. She was instructed to go to the ER to be admitted for prospective surgery tomorrow, 11/28/21. Achy central chest pain the last 2 days which patient attributes to crutch use. No shortness of breath or fluid retention. Medical History as above Surgical History : Hysterectomy, left oophorectomy Family History : Heart disease, stroke Personal/Social history : Half pack daily, occasional EtOH intake, retired Allergies Allergy/AdvReac Type Severity Reaction Status Date / Time morphine AdvReac Nausea Unverified 11/26/21 23:15 Home Medications Medication Instructions Recorded Confirmed Type celecoxib 200 mg capsule 200 mg PO QAM 10/18/21 11/26/21 History cholecalciferol (vitamin D3) 25 0 mcg PO DAILY 10/18/21 11/26/21 History mcg (1,000 unit) capsule sertraline 100 mg tablet 100 mg PO QAM 10/18/21 11/26/21 History diclofenac sodium 1 % topical gel 4 g EXT Q6H #100 grams 10/19/21 11/26/21 Rx (Voltaren Arthritis Pain) Past Med/Surg History Medical History (Updated 11/27/21 @ 05:32 by Garcia Mack MD) Anxiety Anxiety and depression Depression Narcolepsy Osteoarthritis Surgical History (Updated 10/18/21 @ 17:25 by Karen Cox) History of oophorectomy One ovary removed due to cyst Social History Smoking Status: Current every day smoker Tobacco Type: Cigarettes Cigarettes Per Day: half pack; Second Hand Exposure: No; Do You Dip or Chew Tobacco: No; Hx Alcohol Use: Yes Alcohol type: beer Alcohol Intake Frequency: Monthly or L ess Hx Substance Use: No Preferred Language: Bengali Communication Ability: Effective Tube Puller Required: No Beliefs That Will Affect Care: None Current Living Situation: Other Current Living Situation Comment: Son current occupational status: retired Feels Safe at Home: Yes Safety Concerns: Feels Safe At This Time Assistive Devices: Crutches Review of Systems Review of Systems: As per HPI, all other systems reviewed and negative Physical Exam Physical Exam: GENERAL: Comfortable, no respiratory distress SKIN: Normal color, warm HEENT: Xenia palpebral conjunctivae, no ptosis, dry buccal mucosa NECK : Supple, no tenderness CHEST : Decreased breath sounds, anterior chest wall tenderness HEART : RRR, no obvious murmurs ABDOMEN:no distention, nontender EXTREMITIES : No LE swelling, left hip tenderness, no other conspicuous deformities noted NEUROLOGIC : Coherent, no facial asymmetry, gait and stance not assessed Results & Data Results & Data ([facility]) Vital Signs (Past 12 Hours) Vital Signs Temp Pulse Pulse Resp BP BP Pulse Ox 11/27/21 00:00 72 18 122/88 92 11/26/21 22:18 75 14 129/71 93 11/26/21 20:17 36.2 C L 91 H 18 114/78 98 O2 Del Method 11/27/21 00:00 Room Air 11/26/21 22:18 Room Air 11/26/21 20:17 Room Air Laboratory Results Laboratory Results WBC 8.58 K/ul (4.8-10.8) 11/26/21 22: RBC 4.15 M/uL (3.93-5.22) 11/26/21 22:26 Hgb 13.1 g/dl (12.0-16.0) 11/26/21 22:26 Hct 37.8 % (34.1-44.9) 11/26/21 22: MCV 91.1 fL (80.0-100.0) 11/26/21 22: MCH 31.6 pg (25.0-34.0) 11/26/21 22: MCHC 34.7 g/dL (32.0-36.0) 11/26/21 22: RDW Std Deviation 47.0 fL (36.4-46.3) H 11/26/21: RDW Coeff of Jose 14.0 % (11.5-14.5) 11/26/21 22: Plt Count 283 K/uL (130-400) 11/26/21 22:26 MPV 9.8 fL (9.4-12.3) 11/26/21 22: Immature Gran % (Auto) 0.2 % 11/26/21: Neut % (Auto) 47.4 % 11/26/21: Lymph % (Auto) 37.8 % 11/26/21: Redwood % (Auto) 10.6 % 11/26/21: Eos % (Auto) 3.0 % 11/26/21: Baso % (Auto) 1.0 % 11/26/21: Neut # (Auto) 4.06 K/uL (1.4-6.5) 11/26/21: Lymph # (Auto) 3.24 K/uL (1.2-3.4) 11/26/21: Redwood # (Auto) 0.91 K/uL (0.24-0.82) H 11/26/21: Eos # (Auto) 0.26 K/uL (0-0.50) 11/26/21: Baso # (Auto) 0.09 K/uL (0-0.2) 11/26/21: Immature Gran # (Auto) 0.02 K/uL (0.00-0.02) 11/26/21: Sodium 139 mmol/L (136-145) 11/26/21: Potassium 3.6 mmol/L (3.5-5.1) 11/26/21: Chloride 104 mmol/L (98-107) 11/26/21: Carbon Dioxide 29 mmol/L (21-32) 11/26/21: Anion Gap 6 (3-11) 11/26/21: BUN 16 mg/dl (6-23) 11/26/21: Creatinine 0.57 mg/dl (0.6-1.2) L 11/26/21: Est Cr Clr Drug Dosing 79.8 ml/min 11/26/21: Est GFR ( Amer) 112.0 ml/min 11/26/21: Est GFR (Non-Af Amer) 96.6 ml/min 11/26/21: BUN/Creatinine Ratio 28.1 (10-20) H 11/26/21: Glucose 73 mg/dl (70-99(Fasting)) 11/26/21 22: Calcium 9.3 mg/dl (8.5-10.1) 11/26/21: Total Bilirubin 0.4 mg/dl (0.2-1.0) 11/26/21 22: AST 14 U/L (13-39) 11/26/21: ALT 10 U/L (7-52) 11/26/21 22: Alkaline Phosphatase 115 U/L (34-104) H 11/26/21 22: Troponin I High Sens 2.7 pg/ml (0-14) 11/26/21 22: Total Protein 6.6 gm/dl (6.0-8.3) 11/26/21: Albumin 4.1 gm/dl (3.4-5.0) 11/26/21: Globulin 2.5 gm/dl (2.5-4.0) 11/26/21 22: Albumin/Globulin Ratio 1.6 (0.9-2) 11/26/21 22:26 SARS-CoV-2, RNA, NAAT NEGATIVE (NEGATIVE) 11/27/21 00:00 Diagnostic Findings Chest x-ray per my interpretation mild hyperinflation EKG as per my interpretation : Rate 70, NSR, normal axis, no ischemia
[2021-11-27 02:37] LABS: D Dimer 500 ug/L FEU (0-500); Partial Thromboplastin Ratio 1.1; Partial Thromboplastin Time 29.9 Seconds (21.0-31.0)
[2021-11-27] MEDS ORDERED: MAGNESIUM HYDROXIDE SUSP 30 ML UDC PO PRN (04:52)
[2021-11-27] MEDS ORDERED: PROMETHAZINE HCL 12.5 MG in SODIUM CHLORIDE 0.9% 50 ML IV PRN (04:52)
[2021-11-27] MEDS ORDERED: KETOROLAC TROMETHAMINE 15 MG/ML VIAL IV PRN (04:52)
[2021-11-27] MEDS ORDERED: bisacodyL 10 MG SUPP PR PRN (04:52)
[2021-11-27] MEDS ORDERED: NALOXONE HCL 0.4 MG/1 ML VIAL/CARP IV PRN (04:52)
[2021-11-27] MEDS ORDERED: traMADol HCL 50 MG TABLET PO PRN (04:52)
[2021-11-27] MEDS: DICLOFENAC SOD 1% GEL 100 GM TUBE EXT SCH ×3 (05:16→17:36)
[2021-11-27] MEDS ORDERED: ALBUT/IPRATROP 3MG/0.5MG NEB 3 ML VIAL NEB PRN (05:36)
--- NOTE | 2021-11-27 09:07 | Electrocardiogram Report ---
Test Reason : Blood Pressure : / mmHG Vent. Rate : 071 BPM Atrial Rate : 071 BPM P-R Int : 188 ms QRS Dur : 078 ms QT Int : 386 ms P-R-T Axes : 070 005 035 degrees QTc Int : 419 ms Normal sinus rhythm Normal ECG When compared with ECG of 19-OCT-2021 05:56, No significant change was found Confirmed by Bonifacio Polanco ([id number]) on 11/27/2021 9:06:46 AM Referred By: REFERRED SELF Confirmed By:Bonifacio Polanco
[2021-11-27] MEDS: SERTRALINE HCL 100 MG TABLET PO SCH (09:10)
[2021-11-27] MEDS ORDERED: ACETAMINOPHEN 325 MG TAB PO PRN (09:18)
--- NOTE | 2021-11-27 09:55 | Orthopedic Consultation ---
Date of Consultation November 27, 2021 Assessment & Plan (1) Closed left hip fracture: Outpatient MRI showing nondisplaced subcapital left femoral neck fracture. Patient is now scheduled for ORIF of her left hip fracture tomorrow with Dr. Moulton. Patient will need to be n.p.o. after midnight. Limited ambulation today nonweightbearing left lower extremity. Bedside commode. Ice to left hip if any excess discomfort. Plan for surgery tomorrow. History of Present Illness Reason for Consultation: Nondisplaced left femoral neck fracture Attending Physician: Isabel Freeman MD History of Present Illness Patient is a 66-year-old female who states that she had a mechanical fall around the middle of October. She had x-rays performed which showed no fracture. She continued to have pain with ambulation and was seen by [facility] orthopedics. She states that they gave her an injection to help with pain control and started on some physical therapy. She continued to have pain throughout this process. She continued to see no improvement and an MRI was eventually performed. This did show a nondisplaced femoral neck fracture. She saw Dr. Moulton in the office yesterday and after reviewing her x-rays it was felt that she was going to need an ORIF of her left femoral neck fracture. She has been admitted by the [facility] hospitalist service and we will be taking care of her hip fracture. Allergies Allergy/AdvReac Type Severity Reaction Status Date / Time morphine AdvReac Nausea Unverified 11/26/21 23:15 Home Medications Medication Instructions Recorded Confirmed Type celecoxib 200 mg capsule 200 mg PO QAM 10/18/21 11/26/21 History cholecalciferol (vitamin D3) 25 0 mcg PO DAILY 10/18/21 11/26/21 History mcg (1,000 unit) capsule sertraline 100 mg tablet 100 mg PO QAM 10/18/21 11/26/21 History diclofenac sodium 1 % topical gel 4 g EXT Q6H #100 grams 10/19/21 11/26/21 Rx (Voltaren Arthritis Pain) Patient History Medical History Anxiety Anxiety and depression Depression Narcolepsy Osteoarthritis Surgical History History of oophorectomy One ovary removed due to cyst Social History Smoking Status: Current every day smoker Tobacco Type: Cigarettes Cigarettes Per Day: half pack; Second Hand Exposure: No; Do You Dip or Chew Tobacco: No; Hx Alcohol Use: Yes Alcohol type: beer Alcohol Intake Frequency: Monthly or Less Hx Substance Use: No Preferred Language: Irish Communication Ability: Effective Special Inspector Required: No Beliefs That Will Affect Care: None Current Living Situation: Other Current Living Situation Comment: Son current occupational status: retired Feels Safe at Home: Yes Safety Concerns: Feels Safe At This Time Assistive Devices: Crutches Physical Exam Physical Exam: Patient is a 66-year-old white female who is sleeping upon arrival. She is easily awoken. She is alert and oriented x3. No acute distress. Pleasant and cooperative. On examination of her left lower extremity she has mild to moderate tenderness on palpation of the lateral hip. No obvious bruising and or abrasions. Patient states that her pain is basically about the same as it was when she initially fell. She has pain with passive range of motion mainly with adduction. Mild pain with flexion. No pain with internal or external rotation. No pain basically with abduction. She does have good active range of motion with mild pain. Denies knee pain at this time. Denies ankle pain. Range of motion of the knee and ankle are within normal limits. Right lower extremity and bilateral upper extremities are essentially within normal limits with range of motion. No obvious pain during range of motion. Pulses are equal bilaterally of the upper lower extremities. There is no gross motor or sensory loss at this time. Results & Data ([facility]) Vital Signs (Past 12 Hours) Vital Signs Temp Pulse Pulse Resp BP Pulse Ox O2 Del Method 11/27/21 07:22 36.5 C 71 16 119/71 93 Room Air 11/27/21 04:45 37.2 C 68 16 119/74 95 11/27/21 00:00 72 18 122/88 92 Room Air 11/26/21 22:18 75 14 129/71 93 Room Air Diagnostic Findings Outpatient MRI resulted a few days ago. 1. Nondisplaced and mildly impacted subcapital fracture of the left femoral neck. 2. Degenerative tearing of the left acetabular labrum. 3. Sljajmto-au-wolmoj intervertebral disc degeneration at L5-S1.
--- NOTE | 2021-11-27 10:31 | XRay Report ---
XR chest 1V portable HISTORY: 66 years-old Female cp preoperative exam. No acute chest complaints COMPARISON: CTA chest 10/18/2021 TECHNIQUE: AP view of the chest FINDINGS: Cardiomediastinal and hilar silhouettes are within normal limits. No pneumothorax, pleural effusion, airspace consolidation or overt pulmonary edema. Subtle reticular nodular opacities are again noted. Bones appear grossly intact. IMPRESSION: 1. No acute process. 2. Subtle reticulonodular opacities are better visualized on the comparison CTA chest, likely infecti ous or inflammatory. ACT 112: Negative or not required by law. The above report was generated using voice recognition software. It may contain grammatical, syntax o r spelling errors. Electronically signed by: Boone Esparza M.D. 11/27/2021 10:29 AM
--- NOTE | 2021-11-27 15:29 | Hospitalist Progress Note ---
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 She is being managed for the following: Likely Age-related osteoporotic fracture of the left proximal femur/Closed left hip fracture: Patient had persistent left hip pain since her fall from standing height secondary to syncope in early October 2021, x-ray at that time was negative for any fracture. Patient was following outpatient orthopedics, had received outpatient intra-articular steroid injection and physical therapy with no improvement. Finally MRI was done and showed nondisplaced and mildly impacted subcapital fracture of the left femoral neck. Patient was directed by the orthopedic office to go to ER. Orthopedics on board, possible surgery tomorrow N.p.o. midnight, pain management PT/OT and DVT prophylaxis per orthopedics. Other chronic medical conditions: COPD/narcolepsy/mild aortic stenosis/prediabetes/anxiety/ongoing tobacco abuse --->>> continue with/resume home meds as and when able. DVT prophylaxis: SCDs, chemoprophylaxis after surgery per orthopedics team. Full code Text document was generated using voice recognition software. It may contain grammatical or spelling errors. Kindly contact undersigned for clarification of any documentation item in question. Admission and Anticipated Discharge Date Admission Date: November 27, 2021 Subjective Patient seen and examined at bedside as a follow-up for fall closed left hip fracture. Patient was lying in bed, on room air, NAD, reports pain at left hip with movement, denies any new acute events overnight, was n.p.o. earlier for possibility of surgery today but surgery postponed for tomorrow and patient is started on diet, patient denies any fever/chills/cough/chest pain/palpitati on/shortness of breath/other review of symptoms. Physical Exam Physical Exam: GENERAL: Alert and oriented x3. NAD, on RA. HEENT: No pallor, no icterus. Pupils equal, round and reactive to light. Oral mucosa moist. NECK: No JVD, no neck masses. HEART: S1 and S2 heard. Regular rate and rhythm. No murmur, no gallop. RESPIRATORY SYSTEM: Normal AP diameter. No accessory muscle use. No wheezing, no crackles. ABDOMEN: Soft, bowel sounds present, nontender, no distention. CENTRAL NERVOUS SYSTEM: No facial droop. Speech is clear. Obeys simple commands. Moves extremities. EXTREMITIES: No edema, no erythema seen. Left hip pain w/ ROM, decreased ROM at left hip. Results & Data Results & Data ([facility]) Vital Signs (Past 12 Hours) Vital Signs Temp Pulse Pulse Resp BP Pulse Ox Pulse Ox 11/27/21 14:56 36.5 C 72 14 92/50 L 94 11/27/21 08:52 95 11/27/21 07:22 36.5 C 71 16 119/71 93 11/27/21 04:45 37.2 C 68 16 119/74 95 O2 Del Method O2 Del Method 11/27/21 14:56 Room Air 11/27/21 08:52 Room Air 11/27/21 07:22 Room Air 11/27/21 04:45
[2021-11-28] MEDS: DICLOFENAC SOD 1% GEL 100 GM TUBE EXT SCH ×4 (01:21→18:27)
[2021-11-28] MEDS ORDERED: fentaNYL citrate 100 MCG/2 ML VIAL ONE ×3 (07:06→10:19)
[2021-11-28] MEDS ORDERED: PROPOFOL IV EMULSION 10 MG/ML 20 ML VIAL IV ONE (07:06)
[2021-11-28] MEDS ORDERED: MIDAZOLAM HCL 1 MG/ML 2ML VIAL ONE (07:06)
[2021-11-28] MEDS ORDERED: LIDOCAINE 2% MPF LOCAL 5 ML VIAL INFIL ONE (07:07)
[2021-11-28] MEDS: SERTRALINE HCL 100 MG TABLET PO SCH (07:35)
[2021-11-28] MEDS ORDERED: ATROPINE SULFATE 0.1 MG/ML 10ML SYR IV PRN (08:45)
[2021-11-28] MEDS ORDERED: ONDANSETRON INJ 2 MG/ML 2 ML VIAL IV PRN (08:45)
[2021-11-28] MEDS ORDERED: HYDROmorphone INJ 2 MG/ML SYR/VIAL IV PRN (08:45)
[2021-11-28] MEDS ORDERED: ePHEDrine sulfate 50 MG/ML AMP IV PRN (08:45)
--- NOTE | 2021-11-28 08:54 | Anesthesiology Consultation ---
Date of Service November 28, 2021 Assessment & Plan ASA ASA2 Proposed Anesthesia Anesthesia Type: General Risk / Benefits Reviewed With: PT / POA / Parent / Guardian, Accepts Plan and Informed Consent Obtained History Surgery Operation Date: 11/28/21 07:30 Proposed Procedures p Left Femoral Neck Open Reduction Internal Fixation - Boone Moulton DO Height/Weight Height: 5 ft 1 in Weight: 57.2 kg Allergies Allergy/AdvReac Type Severity Reaction Status Date / Time morphine AdvReac Nausea Unverified 11/26/21 23:15 Medications Home Medications Medication Instructions Recorded Confirmed Last Taken celecoxib 200 mg capsule 200 mg PO QAM 10/18/21 11/26/21 Unknown cholecalciferol (vitamin D3) 25 0 mcg PO DAILY 10/18/21 11/26/21 Unknown mcg (1,000 unit) capsule sertraline 100 mg tablet 100 mg PO QAM 10/18/21 11/26/21 Unknown diclofenac sodium 1 % topical gel 4 g EXT Q6H #100 grams 10/19/21 11/26/21 Unknown (Voltaren Arthritis Pain) Active Medications Generic Name Dose Route Start Last Admin Trade Name Bennieq PRN Reason Stop Dose Admin Diclofenac Sodium 4 gm 11/27/21 06:00 11/28/21 06:19 Diclofenac Sod 1% Gel 100 Gm Tube EXT 12/27/21 05:59 Not Given Q6H REMI Protocol Sertraline HCl 100 mg 11/27/21 09:00 11/28/21 07:35 Sertraline Hcl 100 Mg Tablet PO 12/27/21 08:59 100 mg QAM REMI Administration NPO Date Last Intake of Fluids: 11/27/21 Time Last Intake of Fluids: 21:00 Last Intake of Fluids Comment: sip with meds Date Last Intake of Solids: 11/27/21 Time Last Intake of Solids: 18:00 Past Medical History Medical History Anxiety Anxiety and depression Depression Narcolepsy Osteoarthritis Exercise / Class Metabolic Activity II 4-5 Yardwork/Stairs/Walk up hill Past Surgical History Surgical History History of oophorectomy One ovary removed due to cyst Past Anesthesia History No Hx of Anesthesia Complications and No Family Hx of Anesthesia Complications History of PONV No Hx of PONV and No Hx of Motion Sickness Social History Smoking Status: Current every day smoker tobacco type: cigarettes Smoking cigarettes per day: half pack Do You Dip or Chew Tobacco: No Hx Alcohol Use: Yes Alcohol type: beer alcohol intake frequency: holidays/special occasions only Hx Substance Use: No substance use type: does not use Review of Systems denies fever/cough/ colds/ chest pain/ SOB/ LOYD recent holter monitor use by patient. ok per patient denies LOYD Physical Exam Vital Signs Last Vital Signs Temp 37.0 C 11/28/21 07:11 Pulse 67 11/28/21 07:11 Resp 14 11/28/21 07:11 BP 124/74 11/28/21 07:11 Pulse Ox 94 11/28/21 07:11 O2 Del Method 11/28/21 07:42 ENMT Mouth: no TMJ abnormality and no dentition abnormality Thyromental Distance: > or= 3.5 Finger Breadths Mallampati Class: II Neck neck extension not limited Respiratory normal respiratory effort; no respiratory distress Auscultation: lungs clear to auscultation bilaterally Cardiovascular Rate/Rhythm: regular rate and regular rhythm Neurologic moves all extremities Psychiatric Orientation: alert and oriented x 3 Testing Laboratory Results 11/26/21 22:26 11/26/21 22:26 APTT 29.9 Seconds (21.0-31.0) 11/26/21 22:26 Blood Type O Positive 11/27/21 03:43 Antibody Screen NEGATIVE 11/27/21 03:43
--- NOTE | 2021-11-28 08:59 | History & Physical Bridge Note ---
Date of Service November 28, 2021 History & Physical Bridge Note I have examined the patient, reviewed the History & Physical and in the interval since the performance of the History & Physical I have noted the following changes of clinical significance: no changes noted. Patient seen and examined preoperatively. She has an occult left femoral neck fracture. We had a lengthy discussion regarding risk benefits and potential complications of left femoral neck open reduction internal fixation with femoral neck system. Risk include but are not limited to: Infection, neurovascular injury, nonunion, malunion, hardware failure and need for future surgeries. After reviewing these she is elected to proceed with surgical intervention and written consent was obtained.
[2021-11-28] MEDS ORDERED: HYDROmorphone INJ 0.5 MG/0.5 ML SYR IV PRN (09:35)
[2021-11-28] MEDS ORDERED: ceFAZolin 330 MG/ML 1 GM VIAL ONE ×2 (09:35)
[2021-11-28] MEDS ORDERED: ONDANSETRON INJ 2 MG/ML 2 ML VIAL ONE (09:38)
[2021-11-28] MEDS ORDERED: ceFAZolin 2000MG 2,000 MG/15 ML SYR IV ONE (09:39)
--- NOTE | 2021-11-28 10:06 | Post Operative Brief Note ---
Immediate Post Op Note v1 Date of Surgery November 28, 2021 Pre & Post Diagnosis Operation Date: 11/28/21 07:30 Pre-Op Diagnosis: LEFT HIP FX Post-Op Diagnosis: LEFT HIP FX I identified the patient and participated in the time-out.: Yes Procedure Operation Date: 11/28/21 07:30 Actual Procedures p Left Femoral Neck Open Reduction Internal Fixation(Left) - Boone Moulton DO Surgeon Boone Moulton DO Associate [employer] Psychologist Porfirio Bob, PAC Estimated Blood Loss 25 Findings Consistent with Post-Op Diagnosis See dictation Complications None
--- NOTE | 2021-11-28 10:12 | Operative Report ---
Post Operative Report Pre & Post Diagnosis Operation Date: 11/28/21 07:30 Pre-Op Diagnosis: LEFT HIP FX Post-Op Diagnosis: LEFT HIP FX I identified the patient and participated in the time-out.: Yes Procedure Operation Date: 11/28/21 07:30 Actual Procedures p Left Femoral Neck Open Reduction Internal Fixation(Left) - Boone Moulton DO Surgeon Boone Moulton DO Online User Experience Strategist Porfirio Bob, PAC Estimated Blood Loss 25 Findings Consistent with Post-Op Diagnosis See dictation Specimens None Complications None Indications 66-year-old female who had noted several syncopal episodes over the last month. One of the syncopal episodes she reports falling onto her left side and injuring her left hip. She was seen by her primary care provider who ordered x-rays as well as eventually ordered an MRI which demonstrated an occult left femoral neck fracture. Patient presented to clinic. On examination she had pain with attempted ambulation as well as pain with any hip range of motion. Considering her occult femoral neck fracture I did have a lengthy discussion with regarding risk benefits and potential complications of open reduction internal fixation of her femoral neck fracture. Risk include but are not limited to: Infection, neurovascular injury, DVT, nonunion, malunion, hardware failure and need for future surgery. After reviewing these she elected to proceed with surgical intervention. She was then sent to the emergency department and admitted under medical service with plan for surgical intervention. Written consent was obtained. Description of Procedure Implants: Synthes FNS 85 mm bolt 1 hole plate, 85 mm entire rotational screw, 5 mm x 40 mm*Drive locking screw. Patient was appropriate identified in the preoperative holding area and the left lower extremity was marked. She was then taken back to the operative suite where after successful induction of anesthesia she was transferred over to the manual fracture table. She received Ancef per protocol. Using the assistance of fluoroscopy she was position in satisfactory position. She was then prepped and draped in the standard orthopedic fashion. Hip fracture was noted to be nondisplaced consistent with prior radiographs. Timeout was then performed. A 3 cm incision overlying the lateral aspect of the trochanter was then made through the skin and subcutaneous tissue and IT band fascia. An 130 degree angle was then used to position a threaded guidewire through the lateral cortex and into the femoral head and neck in a center center position just beneath the subchondral bone. Length was then measured and an 85 mm implant was selected. Reamer set to 85 mm was then used to overreamed the guidewire. An 85 mm Synthes FNS 1 hole plate was then placed and impacted down to bone. Guidewire was then removed and then interlocking screw was drilled and placed for the single hole. A 40 mm interlocking screw was then placed and torque using a torque limiter. Drill was then set at 85 mm for a derotational pin in the derotational pin/screw was then drilled and then placed and torqued into position. Final radiographs were then obtained demonstrating good position of the implant. Wounds were then copiously irrigated using normal saline solution. Deep fascia was then closed using 0 Vicryl in a running fashion followed by 2-0 Vicryl for subcutaneous tissue and chad for the skin. A sterile dressing of Xeroform 4 x 4 gauze and Tegaderm was then placed. The patient tolerated the procedure well and was taken to recovery room in hemodynamically stable condition. I attest to the content of the Intraoperative Record and any orders documented therein. Any exceptions are noted below.
[2021-11-28] MEDS: fentaNYL citrate 100 MCG/2 ML VIAL IV PRN ×2 (10:19→10:26)
--- NOTE | 2021-11-28 11:14 | Anesthesiology Progress Note ---
Date of Service November 28, 2021 Anesthesia Post Procedure Vital Signs Vital Signs: Temp Pulse Pulse Resp BP Pulse Ox O2 Del Method 11/28/21 11:00 79 12 126/69 93 Room Air 11/28/21 10:50 36.7 C 77 14 124/67 96 Oxymask 11/28/21 10:30 77 19 120/64 98 Oxymask 11/28/21 10:40 78 8 L 122/63 94 Oxymask 11/28/21 10:20 78 13 139/79 99 Oxymask 11/28/21 10:10 36.4 C L 76 14 131/72 99 Oxymask 11/28/21 07:42 Room Air 11/28/21 07:11 37.0 C 67 14 124/74 94 Room Air 11/27/21 19:30 Room Air, CPAP 11/27/21 19:42 36.8 C 73 16 98/64 L 94 Room Air 11/27/21 14:56 36.5 C 72 14 92/50 L 94 Room Air O2 Flow Rate 11/28/21 11:00 11/28/21 10:50 2 11/28/21 10:30 5 11/28/21 10:40 2 11/28/21 10:20 5 11/28/21 10:10 5 11/28/21 07:42 11/28/21 07:11 11/27/21 19:30 11/27/21 19:42 11/27/21 14:56 Pain Intensity Left Hip: Pain Intensity: 8 Transfer of Care Handoff Completed per policy Notes Mental Status: alert / awake / arousable and participated in evaluation Patient Amnestic to Procedure: Yes Nausea / Vomiting: adequately controlled Pain: adequately controlled Airway Patency, RR, SpO2: stable & adequate BP & HR: stable & adequate Hydration State: stable & adequate Anesthetic Complications: no major complications apparent and Pt Satisfied with anesthetic care
[2021-11-28] MEDS: ACETAMINOPHEN 500 MG TAB PO SCH ×2 (11:22→18:26)
[2021-11-28] MEDS: oxyCODONE HCL IR 5 MG TAB (IMMEDIATE RELEASE) PO PRN ×2 (11:43→20:01)
--- NOTE | 2021-11-28 14:57 | Fluoroscopy Report ---
FL hip LT 2-3V CLINICAL HISTORY: LT TROCH NAIL TECHNIQUE: 2 views were obtained with the C-arm in the OR with the above procedure. Total fluoroscopy time was 44 seconds. Comparison: Comparison is made to left hip radiograph 10/19/2021 FINDINGS/IMPRESSION: Intraoperative images were obtained of open reduction internal fixation of the l eft hip. Please correlate with intraoperative fluoroscopy and operative report. ACT 112: Negative or not required by law. Electronically signed by: Gato Bianchi M.D. 11/28/2021 2:55 PM
--- NOTE | 2021-11-28 15:35 | XRay Report ---
XR hip LT min 2V CLINICAL HISTORY: Post-Operative implant position TECHNIQUE: 2 views of the left hip and single frontal view of the pelvis were obtained. Comparison: Comparison is made to left hip and pelvis radiograph 10/19/2021 FINDINGS: Expected postsurgical changes including soft tissue swelling and subcutaneous emphysema. Pins are not ed to span the femoral neck and transfix the proximal femoral diaphysis. Phleboliths are noted. IMPRESSION: Expected postoperative appearance status post left femoral hardware placement. ACT 112: Negative or not required by law. Electronically signed by: Gato Bianchi M.D. 11/28/2021 3:33 PM
--- NOTE | 2021-11-28 16:22 | Hospitalist Progress Note ---
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 She is being managed for the following: Likely Age-related osteoporotic fracture of the left proximal femur/Closed left hip fracture: Patient had persistent left hip pain since her fall from standing height secondary to syncope in early October 2021, x-ray at that time was negative for any fracture. Patient was following outpatient orthopedics, had received outpatient intra-articular steroid injection and physical therapy with no improvement. Finally MRI was done and showed nondisplaced and mildly impacted subcapital fracture of the left femoral neck. Patient was directed by the orthopedic office to go to ER. Orthopedics on board, status post left femoral neck open reduction and internal fixation by Dr. Moulton on 11/28/2021. Resume diet, pain management. Labs in AM. Watch out for acute blood loss anemia. PT/OT and DVT prophylaxis per orthopedics. Other chronic medical conditions: COPD/narcolepsy/mild aortic stenosis/prediabetes/anxiety/ongoing tobacco abuse --->>> continue with/resume home meds as and when able. DVT prophylaxis: SCDs, chemoprophylaxis after surgery per orthopedics team. Full code Text document was generated using voice recognition software. It may contain grammatical or spelling errors. Kindly contact undersigned for clarification of any documentation item in question. Admission and Anticipated Discharge Date Admission Date: November 27, 2021 Subjective Patient seen and examined at bedside as a follow-up for fall closed left hip fracture. Patient was lying in bed, on room air, NAD, is a status post left femoral neck open reduction and internal fixation by Dr. Moulton on 11/28/2021, reports minimal pain at operative site, denies any new acute events overnight, resume diet, patient denies any fever/chills/cough/chest pain/palpitation/shortness of breath/other review of symptoms. Physical Exam Physical Exam: GENERAL: Alert and oriented x3. NAD, on RA. HEENT: No pallor, no icterus. Pupils equal, round and reactive to light. Oral mucosa moist. NECK: No JVD, no neck masses. HEART: S1 and S2 heard. Regular rate and rhythm. No murmur, no gallop. RESPIRATORY SYSTEM: Normal AP diameter. No accessory muscle use. No wheezing, no crackles. ABDOMEN: Soft, bowel sounds present, nontender, no distention. CENTRAL NERVOUS SYSTEM: No facial droop. Speech is clear. Obeys simple commands. Moves extremities. EXTREMITIES: No edema, no erythema seen. Left hip with clean dressing without soakage. Results & Data Results & Data ([facility]) Vital Signs (Past 12 Hours) Vital Signs Temp Pulse Pulse Resp BP Pulse Ox Pulse Ox 11/28/21 15:01 36.7 C 72 14 98/62 L 93 11/28/21 13:24 36.9 C 86 12 93/57 L 92 11/28/21 12:16 37.0 C 77 12 113/67 92 11/28/21 11:47 75 16 124/74 94 11/28/21 11:21 93 11/28/21 11:17 36.9 C 75 12 133/77 93 11/28/21 11:00 79 12 126/69 93 11/28/21 10:50 36.7 C 77 14 124/67 96 11/28/21 10:30 77 19 120/64 98 11/28/21 10:40 78 8 L 122/63 94 11/28/21 10:20 78 13 139/79 99 11/28/21 10:10 36.4 C L 76 14 131/72 99 11/28/21 07:42 11/28/21 07:11 37.0 C 67 14 124/74 94 O2 Del Method O2 Del Method O2 Flow Rate 11/28/21 15:01 Room Air 11/28/21 13:24 Room Air 11/28/21 12:16 Room Air 11/28/21 11:47 Room Air 11/28/21 11:21 Room Air 11/28/21 11:17 Room Air 11/28/21 11:00 Room Air 11/28/21 10:50 Oxymask 2 11/28/21 10:30 Oxymask 5 11/28/21 10:40 Oxymask 2 11/28/21 10:20 Oxymask 5 11/28/21 10:10 Oxymask 5 10/22/22 07:42 Room Air 11/28/21 07:11 Room Air
[2021-11-28] MEDS ORDERED: SODIUM CHLORIDE 0.9% 1000ML 1,000 ML IV SCH (16:30)
[2021-11-28] MEDS: ASPIRIN 81 MG ECTAB PO SCH (20:01)
[2021-11-29] MEDS: DICLOFENAC SOD 1% GEL 100 GM TUBE EXT SCH ×4 (00:23→17:08)
[2021-11-29] MEDS: ACETAMINOPHEN 500 MG TAB PO SCH ×3 (02:43→17:07)
[2021-11-29] MEDS: oxyCODONE HCL IR 5 MG TAB (IMMEDIATE RELEASE) PO PRN ×3 (03:45→20:25)
[2021-11-29 07:43] LABS: Basophils # (auto) 0.05 K/uL (0-0.2); Basophils % (auto) 0.6 %; Eosinophils # (auto) 0.09 K/uL (0-0.50); Eosinophils % (auto) 1.1 %; Hematocrit (blood only) 35.4 % (34.1-44.9); Hemoglobin 11.6 g/dl (12.0-16.0); Immature Granulocytes # (auto) 0.02 K/uL (0.00-0.02); Immature Granulocytes % (auto) 0.3 %; Lymphocytes % (auto) 27.8 %; Mean Corpuscular Hemoglobin 30.7 pg (25.0-34.0); Mean Corpuscular Hgb Conc 32.8 g/dL (32.0-36.0); Mean Corpuscular Volume 93.7 fL (80.0-100.0); Monocytes # (auto) 0.77 K/uL (0.24-0.82); Monocytes % (auto) 9.7 %; Neutrophils # (auto) 4.77 K/uL (1.4-6.5); Neutrophils % (auto) 60.5 %; Platelet Count 220 K/uL (130-400); RDW Coefficient of Variation 13.9 % (11.5-14.5); RDW Standard Deviation 47.8 fL (36.4-46.3); Red Blood Count 3.78 M/uL (3.93-5.22)
[2021-11-29 08:18] LABS: BUN Creatinine Ratio 15.7 (10-20); Calcium 8.6 mg/dl (8.5-10.1); Creatinine Clr Calc Pharmacy 81.9 ml/min; Est GFR (African American) 116.1 ml/min; Est GFR (Non-African American) 100.2 ml/min; Magnesium 1.8 mg/dl (1.7-2.4); Phosphorus 3.7 mg/dl (2.5-4.9); Potassium 3.9 mmol/L (3.5-5.1)
[2021-11-29] MEDS: SERTRALINE HCL 100 MG TABLET PO SCH (08:21)
[2021-11-29] MEDS: ASPIRIN 81 MG ECTAB PO SCH ×2 (08:21→20:25)
--- NOTE | 2021-11-29 08:24 | Orthopedic Progress Note ---
Date of Service November 29, 2021 Assessment & Plan (1) Closed left hip fracture: Plan: Postop day #1 status post Left Femoral Neck Open Reduction Internal Fixation(Left) Weight-bear as tolerated left lower extremity. DVT prophylaxisTED stockings and aspirin 81 mg twice daily. PT/OT Pain controlIV Dilaudid as needed, oral oxycodone as needed, oral Tylenol routine. Discharge planningpatient will be able to discharge home when her pain is controlled. If patient has difficulties with ambulation, consider home health upon discharge. Admission and Anticipated Discharge Date Admission Date: November 27, 2021 Supervising Physician Co-Signing Physician Notes Patient seen and examined. Agree with EDEN Bob's note as above. She reports discomfort in the left hip, especially when transitioning to standing or to sitting, but reports minimal pain in the hip with weightbearing. She feels like this is improved compared to prior to surgery. He is making progress with therapy. Continue with weightbearing as tolerated. Subjective Patient is doing well this morning with the exception of a fair amount of pain in the left hip. No other complaints today. Denies chest pain, shortness of breath, lightheadedness. Physical Exam Constitutional: WD/WN, vitals as above no acute distress Musculoskeletal: Hip: + surgical incision (Left lateral hip dressing C/D/I. Thigh is soft. N/V intact LLE.) and + joint line tenderness (Anne-incisional tenderness left hip); no skin erythema and no ecchymosis Neurologic: normal touch/pain/proprioception and moves all extremities Psychiatric: A+Ox3, euthymic affect Speech: normal rate/rhythm/volume of speech Results & Data ([facility]) Vital Signs (Past 12 Hours) Vital Signs Temp Pulse Resp BP Pulse Ox O2 Del Method 11/29/21 07:53 37.0 C 68 16 108/65 94 Room Air 11/29/21 03:59 36.4 C L 61 16 113/69 92 Room Air 11/28/21 22:10 37.2 C 70 16 97/61 L 93 Room Air
--- NOTE | 2021-11-29 16:29 | Hospitalist Progress Note ---
Date of Service November 29, 2021 Assessment & Plan (1) Closed left hip fracture: Plan 66 yo F w/ PMH of COPD, prediabetes, psoriasis, narcolepsy w/o cataplexy, TOMY, tobacco use disorder presented to our ED 11/27 due to persistent left hip pain leading to MRI left hip which showed closed left hip fracture and was directed by orthopedic office to the ED for surgery. She is being managed for the following: Likely Age-related osteoporotic fracture of the left proximal femur/Closed left hip fracture: Patient had persistent left hip pain since her fall from standing height secondary to syncope in early October 2021, x-ray at that time was negative for any fracture. Patient was following outpatient orthopedics, had received outpatient intra-articular steroid injection and physical therapy with no improvement. Finally MRI was done and showed nondisplaced and mildly impacted subcapital fracture of the left femoral neck. Patient was directed by the orthopedic office to go to ER. Orthopedics on board, status post left femoral neck open reduction and internal fixation by Dr. Moulton on 11/28/2021. Resume diet, pain management. Labs in AM. Watch out for acute blood loss anemia. PT/OT and DVT prophylaxis per orthopedics. --YEHUDA stockings and aspirin 81 Mg twice daily. Patient with fair amount of pain with PT/OT work, plan to DC to home when pain better managed and patient reaches goal set by PT, likely tomorrow. Other chronic medical conditions: COPD/narcolepsy/mild aortic stenosis/prediabetes/anxiety/ongoing tobacco abuse --->>> continue with/resume home meds as and when able. DVT prophylaxis: SCDs, aspirin 81 mg twice daily per orthopedics team. Full code Dispo: Likely tomorrow with PT/OT recs. Will likely need home health. Text document was generated using voice recognition software. It may contain grammatical or spelling errors. Kindly contact undersigned for clarification of any documentation item in question. Admission and Anticipated Discharge Date Admission Date: November 27, 2021 Subjective Patient seen and examined at bedside as a follow-up for fall closed left hip fracture. Patient was lying in bed, on room air, NAD, is a status post left femoral neck open reduction and internal fixation by Dr. Moulton on 11/28/2021, reports fair amount of pain with PT/OT, denies any new acute events overnight, tolerating diet, has moved bowel, patient denies any fever/chills/cough/chest pain/palpitation/shortness of breath/other review of symptoms. Physical Exam Physical Exam: GENERAL: Alert and oriented x3. NAD, on RA. HEENT: No pallor, no icterus. Pupils equal, round and reactive to light. Oral mucosa moist. NECK: No JVD, no neck masses. HEART: S1 and S2 heard. Regular rate and rhythm. No murmur, no gallop. RESPIRATORY SYSTEM: Normal AP diameter. No accessory muscle use. No wheezing, no crackles. ABDOMEN: Soft, bowel sounds present, nontender, no distention. CENTRAL NERVOUS SYSTEM: No facial droop. Speech is clear. Obeys simple commands. Moves extremities. EXTREMITIES: No edema, no erythema seen. Left hip with clean dressing without soakage. Results & Data Results & Data ([facility]) Vital Signs (Past 12 Hours) Vital Signs Temp Pulse Resp BP Pulse Ox O2 Del Method 11/29/21 14:42 36.4 C L 70 16 95/59 L 93 Room Air 11/29/21 07:53 37.0 C 68 16 108/65 94 Room Air
[2021-11-29] MEDS ORDERED: SODIUM CHLORIDE 0.9% 1000ML 1,000 ML IV SCH (16:30)
[2021-11-30] MEDS: DICLOFENAC SOD 1% GEL 100 GM TUBE EXT SCH ×3 (00:26→12:39)
[2021-11-30] MEDS: ACETAMINOPHEN 500 MG TAB PO SCH ×2 (01:57→07:45)
[2021-11-30] MEDS: oxyCODONE HCL IR 5 MG TAB (IMMEDIATE RELEASE) PO PRN ×2 (03:10→10:26)
[2021-11-30 06:45] LABS: Hematocrit (blood only) 34.5 % (34.1-44.9); Hemoglobin 11.4 g/dl (12.0-16.0); Mean Corpuscular Hemoglobin 30.5 pg (25.0-34.0); Mean Corpuscular Volume 92.2 fL (80.0-100.0); Mean Platelet Volume 10.1 fL (9.4-12.3); Platelet Count 229 K/uL (130-400); RDW Standard Deviation 47.3 fL (36.4-46.3); Red Blood Count 3.74 M/uL (3.93-5.22); White Blood Count 7.94 K/ul (4.8-10.8)
[2021-11-30] MEDS: ASPIRIN 81 MG ECTAB PO SCH (07:45)
[2021-11-30] MEDS: SERTRALINE HCL 100 MG TABLET PO SCH (07:46)
--- NOTE | 2021-11-30 08:48 | Orthopedic Progress Note ---
Date of Service November 30, 2021 Assessment & Plan (1) Closed left hip fracture: Plan: Postop day #2 status post Left Femoral Neck Open Reduction Internal Fixation(Left) Weight-bear as tolerated left lower extremity. DVT prophylaxisTED stockings and aspirin 81 mg twice daily. PT/OT Pain controlIV Dilaudid as needed, oral oxycodone as needed, oral Tylenol routine. Discharge planningprobable home with home health. She states she is going to stay with her daughter for a little while. From an orthopedic standpoint, she is okay to discharge today if her pain is controlled and if PT goes well. Discharge instructions placed. Admission and Anticipated Discharge Date Admission Date: November 27, 2021 Subjective Pain is better today. Describes the pain as stiffness. She has been able to ambulate and work with PT. Physical Exam Constitutional: WD/WN, vitals as above no acute distress Musculoskeletal: Hip: + surgical incision (Left lateral hip dressing C/D/I. Thigh is soft. N/V intact LLE.) and + joint line tenderness (Anne-incisional tenderness left hip); no skin erythema and no ecchymosis Neurologic: normal touch/pain/proprioception and moves all extremities Psychiatric: A+Ox3, euthymic affect Speech: normal rate/rhythm/volume of speech Results & Data ([facility]) Vital Signs (Past 12 Hours) Vital Signs Temp Pulse Resp BP Pulse Ox O2 Del Method 11/30/21 07:09 36.5 C 69 14 100/61 92 Room Air 11/29/21 21:12 37.1 C 69 16 94/57 L 93 Room Air
[2021-11-30] MEDS ORDERED: CHOLECALCIFEROL 5,000 UNITS 125 MCG TAB PO SCH (09:00)
--- NOTE | 2021-11-30 13:30 | Discharge Summary ---
Date of Service November 30, 2021 Admission HPI Per Admitting Provider istory obtained from patient and records. Medical history significant for COPD, narcolepsy, mild aortic stenosis, narcolepsy, prediabetes, anxiety/mood disorder, ongoing tobacco abuse. Last confinement last month for syncope attributed to volume depletion versus vasovagal response. Patient hypotensive upon arrival at the ER. TTE showed EF of 65 to 70%, grade 1 diastolic dysfunction, mild aortic stenosis. Patient with persistent left hip pain complaints following fall. Plain x-rays negative for fracture. No improvement in left hip pain despite outpatient intra-articular steroid injection by [facility]. Patient unable to do physical therapy. MRI of the left hip recommended by Orthopedics last week to evaluate symptoms. Outpatient MRI resulted a few days ago. 1. Nondisplaced and mildly impacted subcapital fracture of the left femoral neck. 2. Degenerative tearing of the left acetabular labrum. 3. Pensebuq-qz-kpnxom intervertebral disc degeneration at L5-S1. Patient evaluated by [facility] yesterday. She was instructed to go to the ER to be admitted for prospective surgery tomorrow, 11/28/21. Achy central chest pain the last 2 days which patient attributes to crutch use. No shortness of breath or fluid retention. Medical Historyas above Surgical History : Hysterectomy, left oophorectomy Family History : Heart disease, stroke Personal/Social history : Half pack daily, occasional EtOH intake, retired Allergies Admission Exam Per Admitting Provider GENERAL: Comfortable, no respiratory distress SKIN: Normal color, warm HEENT: [place] palpebral conjunctivae, no ptosis, dry buccal mucosa NECK : Supple, no tenderness CHEST : Decreased breath sounds, anterior chest wall tenderness HEART : RRR, no obvious murmurs ABDOMEN:no distention, nontender EXTREMITIES : No LE swelling, left hip tenderness, no other conspicuous deformities noted NEUROLOGIC : Coherent, no facial asymmetry, gait and stance not assessed Principal Diagnosis Likely is related osteoporotic fracture of the left proximal femur status post repair Discharge Exam GENERAL: Alert and oriented x3. NAD, on RA. HEENT: No pallor, no icterus. Pupils equal, round and reactive to light. Oral mucosa moist. NECK: No JVD, no neck masses. HEART: S1 and S2 heard. Regular rate and rhythm. No murmur, no gallop. RESPIRATORY SYSTEM: Normal AP diameter. No accessory muscle use. No wheezing, no crackles. ABDOMEN: Soft, bowel sounds present, nontender, no distention. CENTRAL NERVOUS SYSTEM: No facial droop. Speech is clear. Obeys simple commands. Moves extremities. EXTREMITIES: No edema, no erythema seen. Left hip with clean dressing without soakage. 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 She was managed for the following: Likely Age-related osteoporotic fracture of the left proximal femur/Closed left hip fracture: Patient had persistent left hip pain since her fall from standing height secondary to syncope in early October 2021, x-ray at that time was negative for any fracture. Patient was following outpatient orthopedics, had received outpatient intra-articular steroid injection and physical therapy with no improvement. Finally MRI was done and showed nondisplaced and mildly impacted subcapital fracture of the left femoral neck. Patient was directed by the orthopedic office to go to ER. Orthopedics on board, status post left femoral neck open reduction and internal fixation by Dr. Moulton on 11/28/2021. Resume diet, pain management. Labs in AM. Watch out for acute blood loss anemia. PT/OT and DVT prophylaxis per orthopedics. --YEHUDA stockings and aspirin 81 Mg twice daily. Patient with fair amount of pain with PT/OT work, plan to DC to home when pain better managed and patient reaches goal set by PT, likely tomorrow. Other chronic medical conditions: COPD/narcolepsy/mild aortic stenosis/prediabetes/anxiety/ongoing tobacco abuse --->>> continue with/resume home meds as and when able. DVT prophylaxis: SCDs, aspirin 81 mg twice daily per orthopedics team. Full code Dispo: Likely tomorrow with PT/OT recs. Will likely need home health. Patient is being discharged home with home health with following instruction at the point of discharge: Follow-up with your primary care physician within a week time and likely you will need your blood test CBC/CMP/magnesium level after the PCP visit. Maintain adequate fluid intake of 2 to 3 L/day. Of which, 0.5 to 1 L could be sukv-avu-gnvxmkg electrolyte solution. Avoid rapid change in position between lying/sitting/standing to avoid dizziness and fall. Follow up with orthopedics as an outpatient. You will be discharged on aspirin 81 mg twice a day for 30 days as a part of clot prophylaxis due to your recent hip fracture. Continue with your physical therapy. You will be discharged on pain medication for a few days. if your pain continues to bother you or is not controlled, you have to get in touch with PCP for further evaluation/pain management/pain meds prescription. You can use rczw-aeq-ngchhkz stool softener/laxative to antagonize the effect of opioid induced constipation as long as you are on opiates pain meds. Continue your other medications as prescribed. Please make sure that you are able to get your medications today by calling your pharmacy before you leave the hospital so that your treatment continuity is not broken. Home Health Attestation I certify that this patient is under my care and that I, or a physicians executive chef assistant working with me, had a face to-face encounter that meets the home health vlqq-rg-ruyr encounter requirements with this patient. The encounter with the patient was in whole, or in part, for the following medical condition, which is the primary reason for home health care (list medical condition): I certify that, based on my findings, the following services are medically necessary home health services: My clinical findings support the need for the above services because: Further, I certify that my clinical findings support that this patient is homebound (i.e. absences from home require considerable and taxing effort and are for medical reasons or religion services or infrequently or of short duration when for other reasons) because: Certification for Home Health Services: Based on the above findings, I certify that this patient is confined to the home and needs intermittent correction care, physical therapy and/or speech therapy or continues to need occupational therapy. The patient is under my care, and I have initiated the establishment of the plan of care. This patient will be followed by a physician who will periodically review the plan of care. Total Time Total Time Spent Total Time Spent (In Minutes): 40 Discharge Plan Discharge Items Patient Disposition: Home - Home Health Services Reason For Visit: L HIP FX Discharge Diagnosis: Likely is related osteoporotic fracture of the left proximal femur status post repair Activity: Per Instructions section Non-emergency contact: Surgeon Call non-emergency contact if: your pain is not controlled, your pain is worsening and your temperature is above 101 Follow-up/Referrals: Bismark Rosado DO [Primary Care Provider] - (Date & Time 12/03/2021 11:20 AM Provider Paul Gregory DO Department [facility] ) Boone Moulton DO [Surgeon] - (Call to schedule a follow-up approximately 12-14 days after surgery if you do not have a follow-up scheduled.) Diet: Regular Addtl Attending Provider Instructions: Follow-up with your primary care physician within a week time and likely you will need your blood test CBC/CMP/magnesium level after the PCP visit. Maintain adequate fluid intake of 2 to 3 L/day. Of which, 0.5 to 1 L could be axkw-tsy-bhgmzaw electrolyte solution. Avoid rapid change in position between lying/sitting/standing to avoid dizziness and fall. Follow up with orthopedics as an outpatient. You will be discharged on aspirin 81 mg twice a day for 30 days as a part of clot prophylaxis due to your recent hip fracture. Continue with your physical therapy. You will be discharged on pain medication for a few days. if your pain continues to bother you or is not controlled, you have to get in touch with PCP for further evaluation/pain management/pain meds prescription. You can use tfyg-zad-skdjfzp stool softener/laxative to antagonize the effect of opioid induced constipation as leslie g as you are on opiates pain meds. Continue your other medications as prescribed. Please make sure that you are able to get your medications today by calling your pharmacy before you leave the hospital so that your treatment continuity is not broken. Addtl Silviculture Teacher Provider Instructions: [facility] DISCHARGE INSTRUCTIONS: HIP FRACTURE SELF CARE INSTRUCTIONS: A. You are to ambulate with a walker or crutches for approximately 6 weeks. B. You are WEIGHT BEARING TOLERATE on your operative lower extremity for at least 6 weeks. C. Wear low heeled shoes with non-slip soles D. Be sure that your floors are free of things that could trip you throw rugs, electrical cords, and small objects. Avoid wet and waxed floors, especially with crutches/walker/cane. E. Try to walk several times a day with rest periods between. F. You may shower 48 hours after surgery and get the incision area wet, but DO NOT soak or submerge incision area in water. (No baths, swimming pools, hot tubs) G. You may have a large, band-aid like dressing over your incision (Aquacel). This will remain on your incision for 7 days, and then can be removed. You CAN shower with this on. If incision is leaking through the dressing, please call the office . H. Do NOT apply soap or any ointment/lotions directly over incision. I. You may use ice as needed to operative site. SPECIAL CARE INSTRUCTIONS: VERY IMPORTANT TO READ AND REVIEW A. You may be at risk for phlebitis or blood clots. a. Wear surgical stockings (YEHUDA hose) for 2 weeks after surgery to improve circulation and reduce swelling. b. Take ASPIRIN 81 mg twice daily for 30 days. This is your blood thinner. c. If you are on Coumadin- you will have daily/weekly blood work to monitor your levels. This will be done by either your family physician/juvenile court liaison (if you are on Coumadin chronically) versus your orthopedic surgeon. Expect a phone call the day of or the day after your blood work is drawn to adjust your dose accordingly. B. There are a few signs you need to watch for after you are home. Call [facility] at [phone] if you experience any of the following: a. If you have a temperature of 101 degrees or higher. b. Sudden increase in pain in your hip not relieved by rest or pain medication. c. Any fluid or drainage from the incision; redness of the incision. d. Shortness of breath or chest pain. B. Please call [facility] at [phone] if you have any questions or concerns about your operation or recovery. C. Call your physician if: a. Temperature is greater than 101 degrees (F). b. Pain is not relieved by prescribed pain medications. c. Increase drainage or redness from incision. d. Unanswered questions or concerns. D. Pain Medication: a. You will be prescribed pain medication upon discharge that should last till your first post-operative appointment. b. If you experience nausea and/or skin rash, discontinue this medication and contact our office for an alternative medication. c. Caution- narcotic pain medication can cause constipation. FOLLOW UP VISIT: Please call [facility] at [phone] to schedule a follow up appointment 12-14 days from the date of your surgery date. Pending Studies at Discharge: No Stand-Alone Forms: My [facility] [employer], Smoking Cessation Medications and DC Order Prescriptions: New aspirin 81 mg Tablet,Delayed Release (Dr/Ec) 81 mg PO BID 29 Days Qty: 58 0RF docusate sodium [Colace] 100 mg capsule 100 mg PO BID 7 Days Qty: 14 0RF oxycodone-acetaminophen [Percocet] 5-325 mg tablet 1 tab PO Q8H PRN (Reason: pain (scale score 7-10)) 5 Days Qty: 15 0RF Continued celecoxib 200 mg capsule 200 mg PO QAM sertraline 100 mg tablet 100 mg PO QAM cholecalciferol (vitamin D3) 25 mcg (1,000 unit) Capsule 0 mcg PO DAILY Discontinued diclofenac sodium [Voltaren Arthritis Pain] 1 % Gel 4 g EXT Q6H Qty: 100 0RF Discharge Orders: Discharge Order (Routine); Ordered 11/30/21 Ordered By: Isabel Freeman Admission Data Admit Date/Time: 11/27/21 02:46 Attending Provider: Isabel Freeman Admit Provider: Garcia Mack Primary Care Provider: Bismark Rosado Other Providers: Garcia Mack ; Boone Moulton ; [facility]
== END 2021-11-30 15:11 | disposition home health service (06) | DRG 482 ==
LOC: ED 20:13 → 3E 11-27 02:46
DX: Z88.5 Allergy status to narcotic agent; M19.90 Unspecified osteoarthritis, unspecified site; I95.9 Hypotension, unspecified; Z20.822 Contact with and (suspected) exposure to COVID-19; Z79.899 Other long term (current) drug therapy; M80.052A Age-related osteoporosis with current pathological fracture, left femur, initial encounter for fracture; Z79.1 Long term (current) use of non-steroidal anti-inflammatories (NSAID); I35.0 Nonrheumatic aortic (valve) stenosis; J44.9 Chronic obstructive pulmonary disease, unspecified; F17.210 Nicotine dependence, cigarettes, uncomplicated; F41.1 Generalized anxiety disorder